=== PATIENT | female | born 1960 | race Caucasian/White ===

== ENCOUNTER 2021-08-08 07:30 | Outpatient (RCR) | payer OTHER, BC, SELFPAY ==
--- NOTE | 2021-05-30 15:48 | PT.OIE ---
Current Diagnoses Strain of muscle and tendon of unspecified wall of thorax, initial encounter (05/30/21) Visit Care Team Role Provider Type Carlito Ramos MD Attending Provider Non-Staff Primary Care Provider Referring Provider Specialty: Medical Address: [address] [place] [address], [phone] Fax: Email: Physical Therapy Initial Evaluation PT-OP-A Visit Information Start: 05/29/21 14:23 Freq: Status: Active Protocol: Document 05/30/21 12:17 MB (Rec: 05/30/21 12:36 MB [id number]) Out-Patient Physical Therapy Visit Information Visit Information Visit Type Initial Evaluation Visit Note [facility], no pre-auth, 45 visits per year Visit Start Time 12:17 Visit Stop Time 13:00 Total Visit Minutes 43 Visit Number 1 Evaluation Information Evaluation Date 05/30/21 PT-OP-B Current Condition Start: 05/29/21 14:23 Freq: Status: Active Protocol: Document 05/30/21 12:17 MB (Rec: 05/30/21 12:36 MB [id number]) Current Condition History of Current Condition Onset Date January 2021 Current Complaints Thoracic pain and tightness and finger numbness. 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 She thinks the grief took a toll on her body. In January, her dad almost slipped and she injured her back trying to help him. She had a trigger finger in right 5th finger and she did some OT exercises her daughter told her to do. She then had numbness in her right thumb and index finger. She tried massage therapy and was told she is a rock. She does a yoga routine twice a day and takes a muscle relaxor. Her right thumb and index finger have not stopped being numb since February. Left thumb numbness is starting at the tip of her thumb. She has pain in her thumb and finger joints. She states that the doctor told her she might have pinched something in her neck. Her doctor does not know about the left thumb numbness as it is new since visiting her doctor. This PT has not received any doctor notes through the EMR. Pt reports 4-5/10 pain across her chest and the front and and back of both her arms. After taking the muscle relaxor, she can sleep until about 0300 and then wakes up. She cannot sleep on her back. She sleeps on her left side and she lies her right arm across the pillow. She has one pillow under her head. She would rather not sleep with a pillow. PMH includes DM1 and has a pump and sensor, vision problems with some nystagmus, she occ uses magnifying glass and contrast, allergies to tape. Prior Treatments and Tests PT in the past for her right hip and leg Treatment Goals Patient/Caregiver Goals To decrease pain, sleep better and see if numbness in fingers gets better PT-OP-C Subjective Start: 05/29/21 14:23 Freq: Status: Active Protocol: Document 05/30/21 12:17 MB (Rec: 05/30/21 12:36 MB [id number]) OP-PT Subjective Patient Comments Patient Comments See history of current condition PT-OP-J Posture/Palpation/Skin Start: 05/29/21 14:23 Freq: Status: Active Protocol: Document 05/30/21 12:17 MB (Rec: 05/30/21 14:06 MB [id number]) Posture Evaluation Comments Posture Comments Standing posture: Rounded shoulders and increased soft tissue body mass, left shoulder 1 in front of left tragus, Dowager's hump, increased thoracic kyphosis and right sided convexity, increased lumbar lordosis, right iliac crest is higher than the left, left knee tends to bend and pt reports history of scoliosis. PT-OP-K Range of Motion Start: 05/29/21 14:23 Freq: Status: Active Protocol: Document 05/30/21 12:17 MB (Rec: 05/30/21 14:06 MB [id number]) Cervical Spine Range of Motion Cervical Spine Active Testing Position Standing Flexion 22 Extension 19 Rotation Left 42 Rotation Right 42 Lateral Flexion Left 16 Lateral Flexion Right 16 Comments Thoracic rotation in sitting to the right 5 deg and left 10 deg, very limited and with some discomfort Shoulder Goniometric Range of Motion Shoulder Left Active Testing Position Standing Flexion 140 Abduction 158 Right Active Testing Position Standing Flexion 140 Abduction 158 PT-OP-M Strength Start: 05/29/21 14:23 Freq: Status: Active Protocol: Document 05/30/21 12:17 MB (Rec: 05/30/21 14:09 MB [id number]) Shoulder Strength Shoulder Manual Muscle Testing Left Flexion 5 Normal Adduction 4 Good External Rotation 3+ Fair+ Internal Rotation 5 Normal Right Flexion 5 Normal Abduction (C5) 4 Good External Rotation 3+ Fair+ Internal Rotation 5 Normal Elbow/Forearm Strength Elbow and Forearm Manual Muscle Testing Left Flexion (C6) 5 Normal Extension (C7) 5 Normal Pronation 4 Good Supination 4 Good Right Flexion (C6) 5 Normal Extension (C7) 4 Good Pronation 4 Good Supination 4 Good Wrist Strength Wrist Manual Muscle Testing Left Flexion (C7) 4 Good Extension (C6) 4 Good Right Flexion (C7) 4 Good Extension (C6) 4 Good PT-OP-Q Treatments Start: 05/29/21 14:23 Freq: Status: Active Protocol: Document 05/30/21 12:17 MB (Rec: 05/30/21 14:03 MB [id number]) Self-Care/Home Management Treatment Education Patient Education Body Mechanics,Home Exercise Program,Joint Protection,Pain Management,Posture,Safety Other Education Proper sleeping position with cervical towel roll support at neck and pillow support between arms and knees when on side, benefits of wrist brace loose to decrease over flexing wrist at night and to keep arm down, benefits of pure direction gentle cervical ROM: flexion/extension, rotation right and left and SB right and left PT-OP-T Assessment and Plan Start: 05/29/21 14:23 Freq: Status: Active Protocol: Document 05/30/21 12:17 MB (Rec: 05/30/21 14:15 MB [id number]) Physical Therapy Assessment Rehab Potential Rehabilitation Potential Fair Evaluation Complexity Number of Personal Factors/Comorbidities 1-2 Number of Body Systems Impaired 3 Clinical Presentation at Evaluation Evolving Impairments Impairments Activity Tolerance,Balance, Functional Activities, Functional Mobility,Pain, Posture,ROM,Sensation,Soft Tissue Mobility,Strength Other Impairments Personal factors include pt states she is a workaholic and she does not have a lot of self-care time. Body systems affected include musculoskeletal, neuromuscular , metabolic, vision. Her clinical presentation is evolving. Goals 5 Red Lead Burner Goal (LTG) Pt will perform HEP with I including postural, breathing, relaxation, self-massage, range of motion and flexibility and strengthening exercises to improve mobility and pain by 07/30/21. LTG Duration 8 weeks 4 Snf Goal (LTG) Pt will present with improved active cervical extension and flexion to at least 30 deg and B rotation to at least 50 deg to improve pain and tasks like driving by 07/30/21. LTG Duration 8 weeks 3 Snf Goal (LTG) Pt will present with improved B thoracic rotation in sitting to at least 20 deg to improve pain and overall motion by . LTG Duration 8 weeks 2 Snf Goal (LTG) Pt will report a 50% improvement in finger numbness to improve fine motor tasks by 07/30/21. LTG Duration 8 weeks 1 Red Lead Burner Goal (LTG) Pt will report an overall 75% improvement in thoracic, neck and arm pain to improve sleep and quality of life by . LTG Duration 8 weeks Assessment Summary Assessment Pt is a 60 y/o female presenting with anterior and posterior thorax, neck and arm pain, right thumb and 1st digit numbness and newer left thumb tip numbness that she relates to an injury when assisting her father in January of this year. Pt has been through a lot this year with the loss of both parents and an in-law, all of whom she and her cared for. 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 She has had weight gain, has DM1 and chronic vision changes. She feels tight in her thorax and B shoulder flexion increases pain in her right neck and head. Her thorax, cervical and shoulder ROM is limited and in that order of severity. She also has trouble sleeping d/t pain. Her BP in RUE this date is in the 150s/ 80s at rest and she states this is high for her. She denies hamlet chest/heart pain and states that she can improve her pain with breathing. She presents with postural changes that further tighten her cervical, thoracic and shoulder fascial areas. She will benefit from PT for manual intervention including Counterstrain, breathing and other relaxation exercises, postural, flexibility and strengthening exercises. Her clinical presentation is challenging d/t overall postural presentation, stress/ grief and health. Physical Therapy Plan Frequency and Duration Frequency of Treatment 2x/Week Duration of Treatment 8 weeks Plan of Care Start Date 05/30/21 Plan of Care End Date 07/30/21 Therapeutic Interventions Therapeutic Interventions Balance Training,Canalithic Repositioning,Coordination Training,Home Exercise Program ,Joint Mobilizations,Manual Therapy,Neuromuscular Re- education,Patient/Caregiver Education,Self-Care/Home Management,Sensory Integration ,Soft Tissue Mobilization, Taping,Therapeutic Activities, Therapeutic Exercises Modalities Cold Pack/Ice Massage,Hot Packs Next Visit Focus/Plan Next Note Type Treatment Note Next Visit Plan Counterstrain vs thoracic rotation and breathing exercises Review pt's exercises she is already doing at home Self-massage with kids or racquet ball against the wall
--- NOTE | 2021-06-04 08:16 | PT.OTN ---
Current Diagnoses Strain of muscle and tendon of unspecified wall of thorax, initial encounter (06/04/21) Physical Therapy Treatment Note PT-OP-A Visit Information Start: 05/29/21 14:23 Freq: Status: Active Protocol: Document 06/04/21 07:30 MB (Rec: 06/04/21 08:13 MB [id number]) Out-Patient Physical Therapy Visit Information Visit Information Visit Type Treatment Note Visit Note [facility], no pre-auth, 45 visits per year Visit Start Time 07:30 Visit Stop Time 08:15 Total Visit Minutes 45 Visit Number 2 Evaluation Information Evaluation Date 05/30/21 PT-OP-B Current Condition Start: 05/29/21 14:23 Freq: Status: Active Protocol: Document 05/30/21 12:17 MB (Rec: 05/30/21 12:36 MB [id number]) Current Condition History of Current Condition Onset Date January 2021 Current Complaints Thoracic pain and tightness and finger numbness. 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 She thinks the grief took a toll on her body. In January, her dad almost slipped and she injured her back trying to help him. She had a trigger finger in right 5th finger and she did some OT exercises her daughter told her to do. She then had numbness in her right thumb and index finger. She tried massage therapy and was told she is a rock. She does a yoga routine twice a day and takes a muscle relaxor. Her right thumb and index finger have not stopped being numb since February. Left thumb numbness is starting at the tip of her thumb. She has pain in her thumb and finger joints. She states that the doctor told her she might have pinched something in her neck. Her doctor does not know about the left thumb numbness as it is new since visiting her doctor. This PT has not received any doctor notes through the EMR. Pt reports 4-5/10 pain across her chest and the front and and back of both her arms. After taking the muscle relaxor, she can sleep until about 0300 and then wakes up. She cannot sleep on her back. She sleeps on her left side and she lies her right arm across the pillow. She has one pillow under her head. She would rather not sleep with a pillow. PMH includes DM1 and has a pump and sensor, vision problems with some nystagmus, she occ uses magnifying glass and contrast, allergies to tape. Prior Treatments and Tests PT in the past for her right hip and leg Treatment Goals Patient/Caregiver Goals To decrease pain, sleep better and see if numbness in fingers gets better PT-OP-C Subjective Start: 05/29/21 14:23 Freq: Status: Active Protocol: Document 06/04/21 07:30 MB (Rec: 06/04/21 08:13 MB [id number]) OP-PT Subjective Patient Comments Patient Comments Pt states that she thinks she is a little bit worse. She felt left sided back pain when bending down to tie her shoes today. She couldn't picker tender helper pills with left fingers this morning because of the numbness. Numbness is still worse on right fingers. PT-OP-J Posture/Palpation/Skin Start: 05/29/21 14:23 Freq: Status: Active Protocol: Document 05/30/21 12:17 MB (Rec: 05/30/21 14:06 MB [id number]) Posture Evaluation Comments Posture Comments Standing posture: Rounded shoulders and increased soft tissue body mass, left shoulder 1 in front of left tragus, Dowager's hump, increased thoracic kyphosis and right sided convexity, increased lumbar lordosis, right iliac crest is higher than the left, left knee tends to bend and pt reports history of scoliosis. PT-OP-K Range of Motion Start: 05/29/21 14:23 Freq: Status: Active Protocol: Document 05/30/21 12:17 MB (Rec: 05/30/21 14:06 MB [id number]) Cervical Spine Range of Motion Cervical Spine Active Testing Position Standing Flexion 22 Extension 19 Rotation Left 42 Rotation Right 42 Lateral Flexion Left 16 Lateral Flexion Right 16 Comments Thoracic rotation in sitting to the right 5 deg and left 10 deg, very limited and with some discomfort Shoulder Goniometric Range of Motion Shoulder Left Active Testing Position Standing Flexion 140 Abduction 158 Right Active Testing Position Standing Flexion 140 Abduction 158 PT-OP-M Strength Start: 05/29/21 14:23 Freq: Status: Active Protocol: Document 05/30/21 12:17 MB (Rec: 05/30/21 14:09 MB [id number]) Shoulder Strength Shoulder Manual Muscle Testing Left Flexion 5 Normal Adduction 4 Good External Rotation 3+ Fair+ Internal Rotation 5 Normal Right Flexion 5 Normal Abduction (C5) 4 Good External Rotation 3+ Fair+ Internal Rotation 5 Normal Elbow/Forearm Strength Elbow and Forearm Manual Muscle Testing Left Flexion (C6) 5 Normal Extension (C7) 5 Normal Pronation 4 Good Supination 4 Good Right Flexion (C6) 5 Normal Extension (C7) 4 Good Pronation 4 Good Supination 4 Good Wrist Strength Wrist Manual Muscle Testing Left Flexion (C7) 4 Good Extension (C6) 4 Good Right Flexion (C7) 4 Good Extension (C6) 4 Good PT-OP-Q Treatments Start: 05/29/21 14:23 Freq: Status: Active Protocol: Document 06/04/21 07:30 MB (Rec: 06/04/21 08:13 MB [id number]) Manual Therapy Treatment Other Other Manual Treatments HR and O2 sats in third left finger before treatment with mouth paper taped: 67 BPM and sats 96%. Pt agrees to Counterstrain to assess and treat fascial tension and she presents with tension in the following fascial systems: dura, standard row LV, ALL, spinal medullary veins, visceral, sinuvertebral, DPR, sympathetics. PT treats stacks in dura, spinal vein extension and sympathetics and cranium is still tight with tension anterior somatics and costal cartilage. Suboccipital release and treated thoracic duct LV and lymphatic scan improves. Re-checked sympathetics and much better releases after suboccipital release and standard LV release. PT-OP-T Assessment and Plan Start: 05/29/21 14:23 Freq: Status: Active Protocol: Document 06/04/21 07:30 MB (Rec: 06/04/21 08:13 MB [id number]) Physical Therapy Assessment Rehab Potential Rehabilitation Potential Fair Evaluation Complexity Number of Personal Factors/Comorbidities 1-2 Number of Body Systems Impaired 3 Clinical Presentation at Evaluation Evolving Impairments Impairments Activity Tolerance,Balance, Functional Activities, Functional Mobility,Pain, Posture,ROM,Sensation,Soft Tissue Mobility,Strength Other Impairments Personal factors include pt states she is a workaholic and she does not have a lot of self-care time. Body systems affected include musculoskeletal, neuromuscular , metabolic, vision. Her clinical presentation is evolving. Goals 5 Line Up Worker Goal (LTG) Pt will perform HEP with I including postural, breathing, relaxation, self-massage, range of motion and flexibility and strengthening exercises to improve mobility and pain by 07/30/21. LTG Duration 8 weeks 4 Line Up Worker Goal (LTG) Pt will present with improved active cervical extension and flexion to at least 30 deg and B rotation to at least 50 deg to improve pain and tasks like driving by 07/30/21. LTG Duration 8 weeks 3 Line Up Worker Goal (LTG) Pt will present with improved B thoracic rotation in sitting to at least 20 deg to improve pain and overall motion by . LTG Duration 8 weeks 2 [facility] Goal (LTG) Pt will report a 50% improvement in finger numbness to improve fine motor tasks by 07/30/21. LTG Duration 8 weeks 1 [facility] Goal (LTG) Pt will report an overall 75% improvement in thoracic, neck and arm pain to improve sleep and quality of life by . LTG Duration 8 weeks Assessment Summary Assessment Pt's entire cranium and neck are very tight and congested and finally improve after suboccipital release and treating one LV point and then revisiting sympathetics and her breathing softens (nasal and with mouth paper taped during treatment). HR 67 BPM and sats 96-97% in hook lying on RA. Pt's presentation will benefit from breathing training soon to help parasympathetic nervous system engage and help tone down sympathetics. HR decreases to 63 with nasal breathing and Counterstrain. Physical Therapy Plan Frequency and Duration Frequency of Treatment 2x/Week Duration of Treatment 8 weeks Plan of Care Start Date 05/30/21 Plan of Care End Date 07/30/21 Therapeutic Interventions Therapeutic Interventions Balance Training,Canalithic Repositioning,Coordination Training,Home Exercise Program ,Joint Mobilizations,Manual Therapy,Neuromuscular Re- education,Patient/Caregiver Education,Self-Care/Home Management,Sensory Integration ,Soft Tissue Mobilization, Taping,Therapeutic Activities, Therapeutic Exercises Modalities Cold Pack/Ice Massage,Hot Packs Next Visit Focus/Plan Next Note Type Treatment Note Next Visit Plan Con't Counterstrain if it is helpful, add thoracic rotation and breathing exercises Review pt's exercises she is already doing at home Self-massage with kids or racquet ball against the wall, Buteyko breathing soon
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
--- NOTE | 2021-06-11 08:14 | PT.OTN ---
Current Diagnoses Strain of muscle and tendon of unspecified wall of thorax, initial encounter (06/11/21) Physical Therapy Treatment Note PT-OP-A Visit Information Start: 05/29/21 14:23 Freq: Status: Active Protocol: Document 06/11/21 07:30 MB (Rec: 06/11/21 08:11 MB [id number]) Out-Patient Physical Therapy Visit Information Visit Information Visit Type Treatment Note Visit Note Premera, no pre-auth, 45 visits per year Visit Start Time 07:30 Visit Stop Time 08:11 Total Visit Minutes 41 Visit Number 4 Evaluation Information Evaluation Date 05/30/21 Precautions Precautions Pt with tingling in hands (had this on initial eval and doctor is aware, contine to monitor) PT-OP-B Current Condition Start: 05/29/21 14:23 Freq: Status: Active Protocol: Document 05/30/21 12:17 MB (Rec: 05/30/21 12:36 MB [id number]) Current Condition History of Current Condition Onset Date January 2021 Current Complaints Thoracic pain and tightness and finger numbness. 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 She thinks the grief took a toll on her body. In January, her dad almost slipped and she injured her back trying to help him. She had a trigger finger in right 5th finger and she did some OT exercises her daughter told her to do. She then had numbness in her right thumb and index finger. She tried massage therapy and was told she is a rock. She does a yoga routine twice a day and takes a muscle relaxor. Her right thumb and index finger have not stopped being numb since February. Left thumb numbness is starting at the tip of her thumb. She has pain in her thumb and finger joints. She states that the doctor told her she might have pinched something in her neck. Her doctor does not know about the left thumb numbness as it is new since visiting her doctor. This PT has not received any doctor notes through the EMR. Pt reports 4-5/10 pain across her chest and the front and and back of both her arms. After taking the muscle relaxor, she can sleep until about 0300 and then wakes up. She cannot sleep on her back. She sleeps on her left side and she lies her right arm across the pillow. She has one pillow under her head. She would rather not sleep with a pillow. PMH includes DM1 and has a pump and sensor, vision problems with some nystagmus, she occ uses magnifying glass and contrast, allergies to tape. Prior Treatments and Tests PT in the past for her right hip and leg Treatment Goals Patient/Caregiver Goals To decrease pain, sleep better and see if numbness in fingers gets better PT-OP-C Subjective Start: 05/29/21 14:23 Freq: Status: Active Protocol: Document 06/11/21 07:30 MB (Rec: 06/11/21 08:11 MB [id number]) OP-PT Subjective Patient Comments Patient Comments Pt feels looser and is doing her breathing. She was up at the emergency vet with her cat overnight. It has been upsetting and she is still at the vet. PT-OP-J Posture/Palpation/Skin Start: 05/29/21 14:23 Freq: Status: Active Protocol: Document 05/30/21 12:17 MB (Rec: 05/30/21 14:06 MB [id number]) Posture Evaluation Comments Posture Comments Standing posture: Rounded shoulders and increased soft tissue body mass, left shoulder 1 in front of left tragus, Dowager's hump, increased thoracic kyphosis and right sided convexity, increased lumbar lordosis, right iliac crest is higher than the left, left knee tends to bend and pt reports history of scoliosis. PT-OP-K Range of Motion Start: 05/29/21 14:23 Freq: Status: Active Protocol: Document 05/30/21 12:17 MB (Rec: 05/30/21 14:06 MB [id number]) Cervical Spine Range of Motion Cervical Spine Active Testing Position Standing Flexion 22 Extension 19 Rotation Left 42 Rotation Right 42 Lateral Flexion Left 16 Lateral Flexion Right 16 Comments Thoracic rotation in sitting to the right 5 deg and left 10 deg, very limited and with some discomfort Shoulder Goniometric Range of Motion Shoulder Left Active Testing Position Standing Flexion 140 Abduction 158 Right Active Testing Position Standing Flexion 140 Abduction 158 PT-OP-M Strength Start: 05/29/21 14:23 Freq: Status: Active Protocol: Document 05/30/21 12:17 MB (Rec: 05/30/21 14:09 MB [id number]) Shoulder Strength Shoulder Manual Muscle Testing Left Flexion 5 Normal Adduction 4 Good External Rotation 3+ Fair+ Internal Rotation 5 Normal Right Flexion 5 Normal Abduction (C5) 4 Good External Rotation 3+ Fair+ Internal Rotation 5 Normal Elbow/Forearm Strength Elbow and Forearm Manual Muscle Testing Left Flexion (C6) 5 Normal Extension (C7) 5 Normal Pronation 4 Good Supination 4 Good Right Flexion (C6) 5 Normal Extension (C7) 4 Good Pronation 4 Good Supination 4 Good Wrist Strength Wrist Manual Muscle Testing Left Flexion (C7) 4 Good Extension (C6) 4 Good Right Flexion (C7) 4 Good Extension (C6) 4 Good PT-OP-Q Treatments Start: 05/29/21 14:23 Freq: Status: Active Protocol: Document 06/11/21 07:30 MB (Rec: 06/11/21 08:11 MB [id number]) Therapeutic Exercises Supine Exercises B shoulder flexion and thoracic extension Comments Knees bent Bridge Comments Pt performs well Prone Exercises Child's Pose Comments Pt reports pain with walking hands to left in left shoulder and stopped Cat and cow Comments Pt performs well and to con't at home Cobra Comments Limited movement, PT ed pt not to do at home Sitting Exercises Cervical rotation with nods Comments 2 reps with nods Thoracic rotation Side bilateral Comments End-range breathing with moving ribs Standing Exercises Scapular retraction Equipment Used Level 2 band Comments Elbows bent, her shoulders go to earlobes. Elbows straight, better, 5 reps PT-OP-T Assessment and Plan Start: 05/29/21 14:23 Freq: Status: Active Protocol: Document 06/11/21 07:30 MB (Rec: 06/11/21 08:11 MB [id number]) Physical Therapy Assessment Rehab Potential Rehabilitation Potential Fair Evaluation Complexity Number of Personal Factors/Comorbidities 1-2 Number of Body Systems Impaired 3 Clinical Presentation at Evaluation Evolving Impairments Impairments Activity Tolerance,Balance, Functional Activities, Functional Mobility,Pain, Posture,ROM,Sensation,Soft Tissue Mobility,Strength Other Impairments Personal factors include pt states she is a workaholic and she does not have a lot of self-care time. Body systems affected include musculoskeletal, neuromuscular , metabolic, vision. Her clinical presentation is evolving. Goals 5 Snf Goal (LTG) Pt will perform HEP with I including postural, breathing, relaxation, self-massage, range of motion and flexibility and strengthening exercises to improve mobility and pain by 11/23/21. LTG Duration 8 weeks 4 Snf Goal (LTG) Pt will present with improved active cervical extension and flexion to at least 30 deg and B rotation to at least 50 deg to improve pain and tasks like driving by 07/30/21. LTG Duration 8 weeks 3 Snf Goal (LTG) Pt will present with improved B thoracic rotation in sitting to at least 20 deg to improve pain and overall motion by . LTG Duration 8 weeks 2 Snf Goal (LTG) Pt will report a 50% improvement in finger numbness to improve fine motor tasks by 07/30/21. LTG Duration 8 weeks 1 Snf Goal (LTG) Pt will report an overall 75% improvement in thoracic, neck and arm pain to improve sleep and quality of life by . LTG Duration 8 weeks Assessment Summary Assessment PT ed pt not to perform Cobra, superman, prone abduction arm at this time. Pt has left shoulder pain with walking hands to the left with child's pose and so stopped. Pt to con't cat cow and scapular retraction with arms straight and then added ball for thoracic spine, thoracic rotation and cervical range today. Pt's paresthesias increase with thoracic rotation and with cervical rotation exercies (right hand for cervical spine) and so con't to monitor. Physical Therapy Plan Frequency and Duration Frequency of Treatment 2x/Week Duration of Treatment 8 weeks Plan of Care Start Date 05/30/21 Plan of Care End Date 07/30/21 Therapeutic Interventions Therapeutic Interventions Balance Training,Canalithic Repositioning,Coordination Training,Home Exercise Program ,Joint Mobilizations,Manual Therapy,Neuromuscular Re- education,Patient/Caregiver Education,Self-Care/Home Management,Sensory Integration ,Soft Tissue Mobilization, Taping,Therapeutic Activities, Therapeutic Exercises Modalities Cold Pack/Ice Massage,Hot Packs Other Referrals/Consults Referrals/Consults Recommended EMG for right greater than left hand paresthesias and then OT hand specialist Next Visit Focus/Plan Next Note Type Treatment Note Next Visit Plan Con't Counterstrain, consider Buteyko progression
--- NOTE | 2021-06-13 08:13 | PT.OTN ---
Current Diagnoses Strain of muscle and tendon of unspecified wall of thorax, initial encounter (06/13/21) Physical Therapy Treatment Note PT-OP-A Visit Information Start: 05/29/21 14:23 Freq: Status: Active Protocol: Document 06/13/21 07:31 MB (Rec: 06/13/21 08:12 MB [id number]) Out-Patient Physical Therapy Visit Information Visit Information Visit Type Treatment Note Visit Note Premera, no pre-auth, 45 visits per year Visit Start Time 07:31 Visit Stop Time 08:12 Total Visit Minutes 41 Visit Number 5 Evaluation Information Evaluation Date 05/30/21 Precautions Precautions Pt with tingling in hands (had this on initial eval and doctor is aware, contine to monitor) PT-OP-B Current Condition Start: 05/29/21 14:23 Freq: Status: Active Protocol: Document 05/30/21 12:17 MB (Rec: 05/30/21 12:36 MB [id number]) Current Condition History of Current Condition Onset Date January 2021 Current Complaints Thoracic pain and tightness and finger numbness. 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 She thinks the grief took a toll on her body. In January, her dad almost slipped and she injured her back trying to help him. She had a trigger finger in right 5th finger and she did some OT exercises her daughter told her to do. She then had numbness in her right thumb and index finger. She tried massage therapy and was told she is a rock. She does a yoga routine twice a day and takes a muscle relaxor. Her right thumb and index finger have not stopped being numb since February. Left thumb numbness is starting at the tip of her thumb. She has pain in her thumb and finger joints. She states that the doctor told her she might have pinched something in her neck. Her doctor does not know about the left thumb numbness as it is new since visiting her doctor. This PT has not received any doctor notes through the EMR. Pt reports 4-5/10 pain across her chest and the front and and back of both her arms. After taking the muscle relaxor, she can sleep until about 0300 and then wakes up. She cannot sleep on her back. She sleeps on her left side and she lies her right arm across the pillow. She has one pillow under her head. She would rather not sleep with a pillow. PMH includes DM1 and has a pump and sensor, vision problems with some nystagmus, she occ uses magnifying glass and contrast, allergies to tape. Prior Treatments and Tests PT in the past for her right hip and leg Treatment Goals Patient/Caregiver Goals To decrease pain, sleep better and see if numbness in fingers gets better PT-OP-C Subjective Start: 05/29/21 14:23 Freq: Status: Active Protocol: Document 06/13/21 07:31 MB (Rec: 06/13/21 08:12 MB [id number]) OP-PT Subjective Patient Comments Patient Comments Pt was a little stiff after that last treatment from working through the exercises she was doing on her own at home. The exercises PT and pt kept are not problematic. Her cat is okay. PT-OP-J Posture/Palpation/Skin Start: 05/29/21 14:23 Freq: Status: Active Protocol: Document 05/30/21 12:17 MB (Rec: 05/30/21 14:06 MB [id number]) Posture Evaluation Comments Posture Comments Standing posture: Rounded shoulders and increased soft tissue body mass, left shoulder 1 in front of left tragus, Dowager's hump, increased thoracic kyphosis and right sided convexity, increased lumbar lordosis, right iliac crest is higher than the left, left knee tends to bend and pt reports history of scoliosis. PT-OP-K Range of Motion Start: 05/29/21 14:23 Freq: Status: Active Protocol: Document 05/30/21 12:17 MB (Rec: 05/30/21 14:06 MB [id number]) Cervical Spine Range of Motion Cervical Spine Active Testing Position Standing Flexion 22 Extension 19 Rotation Left 42 Rotation Right 42 Lateral Flexion Left 16 Lateral Flexion Right 16 Comments Thoracic rotation in sitting to the right 5 deg and left 10 deg, very limited and with some discomfort Shoulder Goniometric Range of Motion Shoulder Left Active Testing Position Standing Flexion 140 Abduction 158 Right Active Testing Position Standing Flexion 140 Abduction 158 PT-OP-M Strength Start: 05/29/21 14:23 Freq: Status: Active Protocol: Document 05/30/21 12:17 MB (Rec: 05/30/21 14:09 MB [id number]) Shoulder Strength Shoulder Manual Muscle Testing Left Flexion 5 Normal Adduction 4 Good External Rotation 3+ Fair+ Internal Rotation 5 Normal Right Flexion 5 Normal Abduction (C5) 4 Good External Rotation 3+ Fair+ Internal Rotation 5 Normal Elbow/Forearm Strength Elbow and Forearm Manual Muscle Testing Left Flexion (C6) 5 Normal Extension (C7) 5 Normal Pronation 4 Good Supination 4 Good Right Flexion (C6) 5 Normal Extension (C7) 4 Good Pronation 4 Good Supination 4 Good Wrist Strength Wrist Manual Muscle Testing Left Flexion (C7) 4 Good Extension (C6) 4 Good Right Flexion (C7) 4 Good Extension (C6) 4 Good PT-OP-Q Treatments Start: 05/29/21 14:23 Freq: Status: Active Protocol: Document 06/13/21 07:31 MB (Rec: 06/13/21 08:12 MB [id number]) Manual Therapy Treatment Other Other Manual Treatments Pt agrees to Counterstrain to assess and treat fascial tension and pt presents with tension in the following fascial systems: dura, mesentery, ALL, LF, viscera. PT treats stacks in mesentery and cranial scan improves and her ribs move better. PT then treats left TENT PT-OP-T Assessment and Plan Start: 05/29/21 14:23 Freq: Status: Active Protocol: Document 06/13/21 07:31 MB (Rec: 06/13/21 08:12 MB [id number]) Physical Therapy Assessment Rehab Potential Rehabilitation Potential Fair Evaluation Complexity Number of Personal Factors/Comorbidities 1-2 Number of Body Systems Impaired 3 Clinical Presentation at Evaluation Evolving Impairments Impairments Activity Tolerance,Balance, Functional Activities, Functional Mobility,Pain, Posture,ROM,Sensation,Soft Tissue Mobility,Strength Other Impairments Personal factors include pt states she is a workaholic and she does not have a lot of self-care time. Body systems affected include musculoskeletal, neuromuscular , metabolic, vision. Her clinical presentation is evolving. Goals 5 Senior Care Goal (LTG) Pt will perform HEP with I including postural, breathing, relaxation, self-massage, range of motion and flexibility and strengthening exercises to improve mobility and pain by 07/30/21. LTG Duration 8 weeks 4 Senior Care Goal (LTG) Pt will present with improved active cervical extension and flexion to at least 30 deg and B rotation to at least 50 deg to improve pain and tasks like driving by 07/30/21. LTG Duration 8 weeks 3 Senior Care Goal (LTG) Pt will present with improved B thoracic rotation in sitting to at least 20 deg to improve pain and overall motion by . LTG Duration 8 weeks 2 Hydrotreater Operator Goal (LTG) Pt will report a 50% improvement in finger numbness to improve fine motor tasks by 07/30/21. LTG Duration 8 weeks 1 Hydrotreater Operator Goal (LTG) Pt will report an overall 75% improvement in thoracic, neck and arm pain to improve sleep and quality of life by . LTG Duration 8 weeks Assessment Summary Assessment Countrerstrain again today and PT treated out visceral mesentery fascial. Will monitor response. Physical Therapy Plan Frequency and Duration Frequency of Treatment 2x/Week Duration of Treatment 8 weeks Plan of Care Start Date 05/30/21 Plan of Care End Date 07/30/21 Therapeutic Interventions Therapeutic Interventions Balance Training,Canalithic Repositioning,Coordination Training,Home Exercise Program ,Joint Mobilizations,Manual Therapy,Neuromuscular Re- education,Patient/Caregiver Education,Self-Care/Home Management,Sensory Integration ,Soft Tissue Mobilization, Taping,Therapeutic Activities, Therapeutic Exercises Modalities Cold Pack/Ice Massage,Hot Packs Other Referrals/Consults Referrals/Consults Recommended EMG for right greater than left hand paresthesias and then OT hand specialist Next Visit Focus/Plan Next Note Type Treatment Note Next Visit Plan Con't Counterstrain, consider Buteyko progression, consider therapy ball for exercises
--- NOTE | 2021-06-21 15:21 | PT.OTN ---
Current Diagnoses Strain of muscle and tendon of unspecified wall of thorax, initial encounter (06/21/21) Physical Therapy Treatment Note PT-OP-A Visit Information Start: 05/29/21 14:23 Freq: Status: Active Protocol: Document 06/21/21 14:31 MB (Rec: 06/21/21 15:20 MB [id number]) Out-Patient Physical Therapy Visit Information Visit Information Visit Type Treatment Note Visit Note Premera, no pre-auth, 45 visits per year Visit Start Time 14:31 Visit Stop Time 15:15 Total Visit Minutes 44 Visit Number 6 Evaluation Information Evaluation Date 05/30/21 Precautions Precautions Pt with tingling in hands (had this on initial eval and doctor is aware, contine to monitor) PT-OP-B Current Condition Start: 05/29/21 14:23 Freq: Status: Active Protocol: Document 05/30/21 12:17 MB (Rec: 05/30/21 12:36 MB [id number]) Current Condition History of Current Condition Onset Date January 2021 Current Complaints Thoracic pain and tightness and finger numbness. 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 She thinks the grief took a toll on her body. In January, her dad almost slipped and she injured her back trying to help him. She had a trigger finger in right 5th finger and she did some OT exercises her daughter told her to do. She then had numbness in her right thumb and index finger. She tried massage therapy and was told she is a rock. She does a yoga routine twice a day and takes a muscle relaxor. Her right thumb and index finger have not stopped being numb since February. Left thumb numbness is starting at the tip of her thumb. She has pain in her thumb and finger joints. She states that the doctor told her she might have pinched something in her neck. Her doctor does not know about the left thumb numbness as it is new since visiting her doctor. This PT has not received any doctor notes through the EMR. Pt reports 4-5/10 pain across her chest and the front and and back of both her arms. After taking the muscle relaxor, she can sleep until about 0300 and then wakes up. She cannot sleep on her back. She sleeps on her left side and she lies her right arm across the pillow. She has one pillow under her head. She would rather not sleep with a pillow. PMH includes DM1 and has a pump and sensor, vision problems with some nystagmus, she occ uses magnifying glass and contrast, allergies to tape. Prior Treatments and Tests PT in the past for her right hip and leg Treatment Goals Patient/Caregiver Goals To decrease pain, sleep better and see if numbness in fingers gets better PT-OP-C Subjective Start: 05/29/21 14:23 Freq: Status: Active Protocol: Document 06/21/21 14:31 MB (Rec: 06/21/21 15:20 MB [id number]) OP-PT Subjective Patient Comments Patient Comments Pt states that she had a headache the rest of the day after last treatment ( Counterstrain). She is feeling better overall and looser. She is doing the breathing exercises. Pt asks about the Med[employer] radha and link for breathing exercise with Marques Guerrero PT-OP-J Posture/Palpation/Skin Start: 05/29/21 14:23 Freq: Status: Active Protocol: Document 05/30/21 12:17 MB (Rec: 05/30/21 14:06 MB [id number]) Posture Evaluation Comments Posture Comments Standing posture: Rounded shoulders and increased soft tissue body mass, left shoulder 1 in front of left tragus, Dowager's hump, increased thoracic kyphosis and right sided convexity, increased lumbar lordosis, right iliac crest is higher than the left, left knee tends to bend and pt reports history of scoliosis. PT-OP-K Range of Motion Start: 05/29/21 14:23 Freq: Status: Active Protocol: Document 05/30/21 12:17 MB (Rec: 05/30/21 14:06 MB [id number]) Cervical Spine Range of Motion Cervical Spine Active Testing Position Standing Flexion 22 Extension 19 Rotation Left 42 Rotation Right 42 Lateral Flexion Left 16 Lateral Flexion Right 16 Comments Thoracic rotation in sitting to the right 5 deg and left 10 deg, very limited and with some discomfort Shoulder Goniometric Range of Motion Shoulder Left Active Testing Position Standing Flexion 140 Abduction 158 Right Active Testing Position Standing Flexion 140 Abduction 158 PT-OP-M Strength Start: 05/29/21 14:23 Freq: Status: Active Protocol: Document 05/30/21 12:17 MB (Rec: 05/30/21 14:09 MB [id number]) Shoulder Strength Shoulder Manual Muscle Testing Left Flexion 5 Normal Adduction 4 Good External Rotation 3+ Fair+ Internal Rotation 5 Normal Right Flexion 5 Normal Abduction (C5) 4 Good External Rotation 3+ Fair+ Internal Rotation 5 Normal Elbow/Forearm Strength Elbow and Forearm Manual Muscle Testing Left Flexion (C6) 5 Normal Extension (C7) 5 Normal Pronation 4 Good Supination 4 Good Right Flexion (C6) 5 Normal Extension (C7) 4 Good Pronation 4 Good Supination 4 Good Wrist Strength Wrist Manual Muscle Testing Left Flexion (C7) 4 Good Extension (C6) 4 Good Right Flexion (C7) 4 Good Extension (C6) 4 Good PT-OP-Q Treatments Start: 05/29/21 14:23 Freq: Status: Active Protocol: Document 06/21/21 14:31 MB (Rec: 06/21/21 15:20 MB [id number]) Therapeutic Exercises Supine Exercises Buteyko breathing Supine Exercise Name Progressed to Buteyko breathing radha Comments See assessment comments PT-OP-T Assessment and Plan Start: 05/29/21 14:23 Freq: Status: Active Protocol: Document 06/21/21 14:31 MB (Rec: 06/21/21 15:20 MB [id number]) Physical Therapy Assessment Rehab Potential Rehabilitation Potential Fair Evaluation Complexity Number of Personal Factors/Comorbidities 1-2 Number of Body Systems Impaired 3 Clinical Presentation at Evaluation Evolving Impairments Impairments Activity Tolerance,Balance, Functional Activities, Functional Mobility,Pain, Posture,ROM,Sensation,Soft Tissue Mobility,Strength Other Impairments Personal factors include pt states she is a workaholic and she does not have a lot of self-care time. Body systems affected include musculoskeletal, neuromuscular , metabolic, vision. Her clinical presentation is evolving. Goals 5 Assisted Goal (LTG) Pt will perform HEP with I including postural, breathing, relaxation, self-massage, range of motion and flexibility and strengthening exercises to improve mobility and pain by 07/30/21. LTG Duration 8 weeks 4 Assisted Goal (LTG) Pt will present with improved active cervical extension and flexion to at least 30 deg and B rotation to at least 50 deg to improve pain and tasks like driving by 07/30/21. LTG Duration 8 weeks 3 Assisted Goal (LTG) Pt will present with improved B thoracic rotation in sitting to at least 20 deg to improve pain and overall motion by . LTG Duration 8 weeks 2 Cnc Service Technician Goal (LTG) Pt will report a 50% improvement in finger numbness to improve fine motor tasks by 07/30/21. LTG Duration 8 weeks 1 Assisted Goal (LTG) Pt will report an overall 75% improvement in thoracic, neck and arm pain to improve sleep and quality of life by . LTG Duration 8 weeks Assessment Summary Assessment [employer] breathing radha today: pt supine, mouth taped, head and LEs supported by pillows, relaxing several muscle groups , working on decreasing breathing, stomach and chest relaxed and free from tension. Focus on creating need for air gently. Pt to con't radha on her own at home before bed. Physical Therapy Plan Frequency and Duration Frequency of Treatment 2x/Week Duration of Treatment 8 weeks Plan of Care Start Date 05/30/21 Plan of Care End Date 07/30/21 Therapeutic Interventions Therapeutic Interventions Balance Training,Canalithic Repositioning,Coordination Training,Home Exercise Program ,Joint Mobilizations,Manual Therapy,Neuromuscular Re- education,Patient/Caregiver Education,Self-Care/Home Management,Sensory Integration ,Soft Tissue Mobilization, Taping,Therapeutic Activities, Therapeutic Exercises Modalities Cold Pack/Ice Massage,Hot Packs Other Referrals/Consults Referrals/Consults Recommended EMG for right greater than left hand paresthesias and then OT hand specialist Next Visit Focus/Plan Next Note Type Treatment Note Next Visit Plan Con't Counterstrain, consider therapy ball for exercises
--- NOTE | 2021-06-24 08:12 | PT.OTN ---
Current Diagnoses Strain of muscle and tendon of unspecified wall of thorax, initial encounter (06/24/21) Physical Therapy Treatment Note PT-OP-A Visit Information Start: 05/29/21 14:23 Freq: Status: Active Protocol: Document 06/24/21 07:32 MB (Rec: 06/24/21 08:09 MB [id number]) Out-Patient Physical Therapy Visit Information Visit Information Visit Type Treatment Note Visit Note Premera, no pre-auth, 45 visits per year Visit Start Time 07:32 Visit Stop Time 08:12 Total Visit Minutes 40 Visit Number 7 Evaluation Information Evaluation Date 05/30/21 Precautions Precautions Pt with tingling in hands (had this on initial eval and doctor is aware, contine to monitor) PT-OP-B Current Condition Start: 05/29/21 14:23 Freq: Status: Active Protocol: Document 05/30/21 12:17 MB (Rec: 05/30/21 12:36 MB [id number]) Current Condition History of Current Condition Onset Date January 2021 Current Complaints Thoracic pain and tightness and finger numbness. 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 She thinks the grief took a toll on her body. In January, her dad almost slipped and she injured her back trying to help him. She had a trigger finger in right 5th finger and she did some OT exercises her daughter told her to do. She then had numbness in her right thumb and index finger. She tried massage therapy and was told she is a rock. She does a yoga routine twice a day and takes a muscle relaxor. Her right thumb and index finger have not stopped being numb since February. Left thumb numbness is starting at the tip of her thumb. She has pain in her thumb and finger joints. She states that the doctor told her she might have pinched something in her neck. Her doctor does not know about the left thumb numbness as it is new since visiting her doctor. This PT has not received any doctor notes through the EMR. Pt reports 4-5/10 pain across her chest and the front and and back of both her arms. After taking the muscle relaxor, she can sleep until about 0300 and then wakes up. She cannot sleep on her back. She sleeps on her left side and she lies her right arm across the pillow. She has one pillow under her head. She would rather not sleep with a pillow. PMH includes DM1 and has a pump and sensor, vision problems with some nystagmus, she occ uses magnifying glass and contrast, allergies to tape. Prior Treatments and Tests PT in the past for her right hip and leg Treatment Goals Patient/Caregiver Goals To decrease pain, sleep better and see if numbness in fingers gets better PT-OP-C Subjective Start: 05/29/21 14:23 Freq: Status: Active Protocol: Document 06/24/21 07:32 MB (Rec: 06/24/21 08:09 MB [id number]) OP-PT Subjective Patient Comments Patient Comments Pt states that her left fingers are not numb at all anymore. Her right fingers con 't to be so. PT-OP-J Posture/Palpation/Skin Start: 05/29/21 14:23 Freq: Status: Active Protocol: Document 05/30/21 12:17 MB (Rec: 05/30/21 14:06 MB [id number]) Posture Evaluation Comments Posture Comments Standing posture: Rounded shoulders and increased soft tissue body mass, left shoulder 1 in front of left tragus, Dowager's hump, increased thoracic kyphosis and right sided convexity, increased lumbar lordosis, right iliac crest is higher than the left, left knee tends to bend and pt reports history of scoliosis. PT-OP-K Range of Motion Start: 05/29/21 14:23 Freq: Status: Active Protocol: Document 05/30/21 12:17 MB (Rec: 05/30/21 14:06 MB [id number]) Cervical Spine Range of Motion Cervical Spine Active Testing Position Standing Flexion 22 Extension 19 Rotation Left 42 Rotation Right 42 Lateral Flexion Left 16 Lateral Flexion Right 16 Comments Thoracic rotation in sitting to the right 5 deg and left 10 deg, very limited and with some discomfort Shoulder Goniometric Range of Motion Shoulder Left Active Testing Position Standing Flexion 140 Abduction 158 Right Active Testing Position Standing Flexion 140 Abduction 158 PT-OP-M Strength Start: 05/29/21 14:23 Freq: Status: Active Protocol: Document 05/30/21 12:17 MB (Rec: 05/30/21 14:09 MB [id number]) Shoulder Strength Shoulder Manual Muscle Testing Left Flexion 5 Normal Adduction 4 Good External Rotation 3+ Fair+ Internal Rotation 5 Normal Right Flexion 5 Normal Abduction (C5) 4 Good External Rotation 3+ Fair+ Internal Rotation 5 Normal Elbow/Forearm Strength Elbow and Forearm Manual Muscle Testing Left Flexion (C6) 5 Normal Extension (C7) 5 Normal Pronation 4 Good Supination 4 Good Right Flexion (C6) 5 Normal Extension (C7) 4 Good Pronation 4 Good Supination 4 Good Wrist Strength Wrist Manual Muscle Testing Left Flexion (C7) 4 Good Extension (C6) 4 Good Right Flexion (C7) 4 Good Extension (C6) 4 Good PT-OP-Q Treatments Start: 05/29/21 14:23 Freq: Status: Active Protocol: Document 06/24/21 07:32 MB (Rec: 06/24/21 08:09 MB [id number]) Therapeutic Exercises Supine Exercises Pool noodle exercises Supine Exercise Name Tip pelvis, tummy tight Side bilateral Equipment Used Purple pool noodle Comments Scapular retraction, pect opening Pect stretch Side bilateral Equipment Used Towel along spine Comments Deep breathing, thoracic extension, scap retraction, pect stretch Sitting Exercises Pect stretch over ball Equipment Used 55 cm ball Comments Bar to the right and assist to walk down and walk back up 55 cm ball Sitting Exercise Name Sitting on the ball, large circles right and left, abd drawing in Side bilateral Comments Abd drawing in tilt forward and back and small circles right and left PT-OP-T Assessment and Plan Start: 05/29/21 14:23 Freq: Status: Active Protocol: Document 06/24/21 07:32 MB (Rec: 06/24/21 08:09 MB [id number]) Physical Therapy Assessment Rehab Potential Rehabilitation Potential Fair Evaluation Complexity Number of Personal Factors/Comorbidities 1-2 Number of Body Systems Impaired 3 Clinical Presentation at Evaluation Evolving Impairments Impairments Activity Tolerance,Balance, Functional Activities, Functional Mobility,Pain, Posture,ROM,Sensation,Soft Tissue Mobility,Strength Other Impairments Personal factors include pt states she is a workaholic and she does not have a lot of self-care time. Body systems affected include musculoskeletal, neuromuscular , metabolic, vision. Her clinical presentation is evolving. Goals 5 Tax Expert Goal (LTG) Pt will perform HEP with I including postural, breathing, relaxation, self-massage, range of motion and flexibility and strengthening exercises to improve mobility and pain by 07/30/21. LTG Duration 8 weeks 4 Tax Expert Goal (LTG) Pt will present with improved active cervical extension and flexion to at least 30 deg and B rotation to at least 50 deg to improve pain and tasks like driving by 07/30/21. LTG Duration 8 weeks 3 Tax Expert Goal (LTG) Pt will present with improved B thoracic rotation in sitting to at least 20 deg to improve pain and overall motion by . LTG Duration 8 weeks 2 Tax Expert Goal (LTG) Pt will report a 50% improvement in finger numbness to improve fine motor tasks by 07/30/21. LTG Duration 8 weeks 1 Tax Expert Goal (LTG) Pt will report an overall 75% improvement in thoracic, neck and arm pain to improve sleep and quality of life by . LTG Duration 8 weeks Assessment Summary Assessment Progressed flexibility today with therapy ball, towel roll, pool noodle and pt tolerates well. Ed pt in the benefits of getting a pool noodle and therapy ball and working on breathing with it. Ed pt on benefits of going for a walk at lunch. Physical Therapy Plan Frequency and Duration Frequency of Treatment 2x/Week Duration of Treatment 8 weeks Plan of Care Start Date 05/30/21 Plan of Care End Date 07/30/21 Therapeutic Interventions Therapeutic Interventions Balance Training,Canalithic Repositioning,Coordination Training,Home Exercise Program ,Joint Mobilizations,Manual Therapy,Neuromuscular Re- education,Patient/Caregiver Education,Self-Care/Home Management,Sensory Integration ,Soft Tissue Mobilization, Taping,Therapeutic Activities, Therapeutic Exercises Modalities Cold Pack/Ice Massage,Hot Packs Other Referrals/Consults Referrals/Consults Recommended EMG for right greater than left hand paresthesias and then OT hand specialist Next Visit Focus/Plan Next Note Type Treatment Note Next Visit Plan Consider progressing Buteyko breathing, therapy ball exercises, consider strengthening over pool noodle
--- NOTE | 2021-06-26 08:14 | PT.OTN ---
Current Diagnoses Strain of muscle and tendon of unspecified wall of thorax, initial encounter (06/26/21) Physical Therapy Treatment Note PT-OP-A Visit Information Start: 05/29/21 14:23 Freq: Status: Active Protocol: Document 06/26/21 07:30 MB (Rec: 06/26/21 08:13 MB [id number]) Out-Patient Physical Therapy Visit Information Visit Information Visit Type Treatment Note Visit Note Premera, no pre-auth, 45 visits per year Visit Start Time 07:30 Visit Stop Time 08:12 Total Visit Minutes 42 Visit Number 8 Evaluation Information Evaluation Date 05/30/21 Precautions Precautions Pt with tingling in hands (had this on initial eval and doctor is aware, contine to monitor) PT-OP-B Current Condition Start: 05/29/21 14:23 Freq: Status: Active Protocol: Document 05/30/21 12:17 MB (Rec: 05/30/21 12:36 MB [id number]) Current Condition History of Current Condition Onset Date January 2021 Current Complaints Thoracic pain and tightness and finger numbness. 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 She thinks the grief took a toll on her body. In January, her dad almost slipped and she injured her back trying to help him. She had a trigger finger in right 5th finger and she did some OT exercises her daughter told her to do. She then had numbness in her right thumb and index finger. She tried massage therapy and was told she is a rock. She does a yoga routine twice a day and takes a muscle relaxor. Her right thumb and index finger have not stopped being numb since February. Left thumb numbness is starting at the tip of her thumb. She has pain in her thumb and finger joints. She states that the doctor told her she might have pinched something in her neck. Her doctor does not know about the left thumb numbness as it is new since visiting her doctor. This PT has not received any doctor notes through the EMR. Pt reports 4-5/10 pain across her chest and the front and and back of both her arms. After taking the muscle relaxor, she can sleep until about 0300 and then wakes up. She cannot sleep on her back. She sleeps on her left side and she lies her right arm across the pillow. She has one pillow under her head. She would rather not sleep with a pillow. PMH includes DM1 and has a pump and sensor, vision problems with some nystagmus, she occ uses magnifying glass and contrast, allergies to tape. Prior Treatments and Tests PT in the past for her right hip and leg Treatment Goals Patient/Caregiver Goals To decrease pain, sleep better and see if numbness in fingers gets better PT-OP-C Subjective Start: 05/29/21 14:23 Freq: Status: Active Protocol: Document 06/26/21 07:30 MB (Rec: 06/26/21 08:13 MB [id number]) OP-PT Subjective Patient Comments Patient Comments Pt states that she went to OT in [facility] for hand numbness. She will see the OT 2x/wk on opposite days of PT. She was given prayer stretch carpal tunnel exercises and pressing out. PT-OP-J Posture/Palpation/Skin Start: 05/29/21 14:23 Freq: Status: Active Protocol: Document 05/30/21 12:17 MB (Rec: 05/30/21 14:06 MB [id number]) Posture Evaluation Comments Posture Comments Standing posture: Rounded shoulders and increased soft tissue body mass, left shoulder 1 in front of left tragus, Dowager's hump, increased thoracic kyphosis and right sided convexity, increased lumbar lordosis, right iliac crest is higher than the left, left knee tends to bend and pt reports history of scoliosis. PT-OP-K Range of Motion Start: 05/29/21 14:23 Freq: Status: Active Protocol: Document 05/30/21 12:17 MB (Rec: 05/30/21 14:06 MB [id number]) Cervical Spine Range of Motion Cervical Spine Active Testing Position Standing Flexion 22 Extension 19 Rotation Left 42 Rotation Right 42 Lateral Flexion Left 16 Lateral Flexion Right 16 Comments Thoracic rotation in sitting to the right 5 deg and left 10 deg, very limited and with some discomfort Shoulder Goniometric Range of Motion Shoulder Left Active Testing Position Standing Flexion 140 Abduction 158 Right Active Testing Position Standing Flexion 140 Abduction 158 PT-OP-M Strength Start: 05/29/21 14:23 Freq: Status: Active Protocol: Document 05/30/21 12:17 MB (Rec: 05/30/21 14:09 MB [id number]) Shoulder Strength Shoulder Manual Muscle Testing Left Flexion 5 Normal Adduction 4 Good External Rotation 3+ Fair+ Internal Rotation 5 Normal Right Flexion 5 Normal Abduction (C5) 4 Good External Rotation 3+ Fair+ Internal Rotation 5 Normal Elbow/Forearm Strength Elbow and Forearm Manual Muscle Testing Left Flexion (C6) 5 Normal Extension (C7) 5 Normal Pronation 4 Good Supination 4 Good Right Flexion (C6) 5 Normal Extension (C7) 4 Good Pronation 4 Good Supination 4 Good Wrist Strength Wrist Manual Muscle Testing Left Flexion (C7) 4 Good Extension (C6) 4 Good Right Flexion (C7) 4 Good Extension (C6) 4 Good PT-OP-Q Treatments Start: 05/29/21 14:23 Freq: Status: Active Protocol: Document 06/26/21 07:30 MB (Rec: 06/26/21 08:13 MB [id number]) Cardio Equipment Upper Body Ergometer (UBE) Duration (Minutes) 14 Other 1' forward and 1' backward Therapeutic Exercises Sitting Exercises Wrist and elbow unwind Sitting Exercise Name Some cervical SB Comments Performed all exercises with wrist rotation, median and radial nerve stretc Standing Exercises Doorway stretches Standing Exercise Name Pect, hip flexor and SB Comments B, feet flush to doorway Thread the needle Comments Hands on wall Cat cow Comments Hands on sink PT-OP-T Assessment and Plan Start: 05/29/21 14:23 Freq: Status: Active Protocol: Document 06/26/21 07:30 MB (Rec: 06/26/21 08:13 MB [id number]) Physical Therapy Assessment Rehab Potential Rehabilitation Potential Fair Evaluation Complexity Number of Personal Factors/Comorbidities 1-2 Number of Body Systems Impaired 3 Clinical Presentation at Evaluation Evolving Impairments Impairments Activity Tolerance,Balance, Functional Activities, Functional Mobility,Pain, Posture,ROM,Sensation,Soft Tissue Mobility,Strength Other Impairments Personal factors include pt states she is a workaholic and she does not have a lot of self-care time. Body systems affected include musculoskeletal, neuromuscular , metabolic, vision. Her clinical presentation is evolving. Goals 5 Binder Cutter Goal (LTG) Pt will perform HEP with I including postural, breathing, relaxation, self-massage, range of motion and flexibility and strengthening exercises to improve mobility and pain by 07/30/21. LTG Duration 8 weeks 4 Binder Cutter Goal (LTG) Pt will present with improved active cervical extension and flexion to at least 30 deg and B rotation to at least 50 deg to improve pain and tasks like driving by 07/30/21. LTG Duration 8 weeks 3 Fci Goal (LTG) Pt will present with improved B thoracic rotation in sitting to at least 20 deg to improve pain and overall motion by . LTG Duration 8 weeks 2 Binder Cutter Goal (LTG) Pt will report a 50% improvement in finger numbness to improve fine motor tasks by 07/30/21. LTG Duration 8 weeks 1 Fci Goal (LTG) Pt will report an overall 75% improvement in thoracic, neck and arm pain to improve sleep and quality of life by . LTG Duration 8 weeks Assessment Summary Assessment Pt is now seeing OT 2x/wk in [facility] re: hand numbness and she was told she has some carpal tunnel stuff. She might get an EMG. She was given some exercises and is doing them. Progressed arm bike today and stretches for work to help her get out of forward posture. Physical Therapy Plan Frequency and Duration Frequency of Treatment 2x/Week Duration of Treatment 8 weeks Plan of Care Start Date 05/30/21 Plan of Care End Date 07/30/21 Therapeutic Interventions Therapeutic Interventions Balance Training,Canalithic Repositioning,Coordination Training,Home Exercise Program ,Joint Mobilizations,Manual Therapy,Neuromuscular Re- education,Patient/Caregiver Education,Self-Care/Home Management,Sensory Integration ,Soft Tissue Mobilization, Taping,Therapeutic Activities, Therapeutic Exercises Modalities Cold Pack/Ice Massage,Hot Packs Other Referrals/Consults Referrals/Consults Recommended EMG for right greater than left hand paresthesias Next Visit Focus/Plan Next Note Type Treatment Note Next Visit Plan Consider progressing Buteyko breathing, therapy ball exercises, consider strengthening over pool noodle , progress open books
--- NOTE | 2021-07-08 10:45 | PT.OTN ---
Current Diagnoses Strain of muscle and tendon of unspecified wall of thorax, initial encounter (07/08/21) Physical Therapy Treatment Note PT-OP-A Visit Information Start: 05/29/21 14:23 Freq: Status: Active Protocol: Document 07/08/21 08:16 MB (Rec: 07/08/21 08:58 MB [id number]) Out-Patient Physical Therapy Visit Information Visit Information Visit Type Treatment Note Visit Note Premera, no pre-auth, 45 visits per year Visit Start Time 08:16 Visit Stop Time 09:00 Total Visit Minutes 44 Visit Number 9 Evaluation Information Evaluation Date 05/30/21 Precautions Precautions Pt with tingling in hands (had this on initial eval and doctor is aware, contine to monitor) PT-OP-B Current Condition Start: 05/29/21 14:23 Freq: Status: Active Protocol: Document 05/30/21 12:17 MB (Rec: 05/30/21 12:36 MB [id number]) Current Condition History of Current Condition Onset Date January 2021 Current Complaints Thoracic pain and tightness and finger numbness. 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 She thinks the grief took a toll on her body. In January, her dad almost slipped and she injured her back trying to help him. She had a trigger finger in right 5th finger and she did some OT exercises her daughter told her to do. She then had numbness in her right thumb and index finger. She tried massage therapy and was told she is a rock. She does a yoga routine twice a day and takes a muscle relaxor. Her right thumb and index finger have not stopped being numb since February. Left thumb numbness is starting at the tip of her thumb. She has pain in her thumb and finger joints. She states that the doctor told her she might have pinched something in her neck. Her doctor does not know about the left thumb numbness as it is new since visiting her doctor. This PT has not received any doctor notes through the EMR. Pt reports 4-5/10 pain across her chest and the front and and back of both her arms. After taking the muscle relaxor, she can sleep until about 0300 and then wakes up. She cannot sleep on her back. She sleeps on her left side and she lies her right arm across the pillow. She has one pillow under her head. She would rather not sleep with a pillow. PMH includes DM1 and has a pump and sensor, vision problems with some nystagmus, she occ uses magnifying glass and contrast, allergies to tape. Prior Treatments and Tests PT in the past for her right hip and leg Treatment Goals Patient/Caregiver Goals To decrease pain, sleep better and see if numbness in fingers gets better PT-OP-C Subjective Start: 05/29/21 14:23 Freq: Status: Active Protocol: Document 07/08/21 08:16 MB (Rec: 07/08/21 10:45 MB [id number]) OP-PT Subjective Patient Comments Patient Comments Pt reports she has had an onset of a new kind of neck tension and headache over the past few days. PT-OP-J Posture/Palpation/Skin Start: 05/29/21 14:23 Freq: Status: Active Protocol: Document 05/30/21 12:17 MB (Rec: 05/30/21 14:06 MB [id number]) Posture Evaluation Comments Posture Comments Standing posture: Rounded shoulders and increased soft tissue body mass, left shoulder 1 in front of left tragus, Dowager's hump, increased thoracic kyphosis and right sided convexity, increased lumbar lordosis, right iliac crest is higher than the left, left knee tends to bend and pt reports history of scoliosis. PT-OP-K Range of Motion Start: 05/29/21 14:23 Freq: Status: Active Protocol: Document 05/30/21 12:17 MB (Rec: 05/30/21 14:06 MB [id number]) Cervical Spine Range of Motion Cervical Spine Active Testing Position Standing Flexion 22 Extension 19 Rotation Left 42 Rotation Right 42 Lateral Flexion Left 16 Lateral Flexion Right 16 Comments Thoracic rotation in sitting to the right 5 deg and left 10 deg, very limited and with some discomfort Shoulder Goniometric Range of Motion Shoulder Left Active Testing Position Standing Flexion 140 Abduction 158 Right Active Testing Position Standing Flexion 140 Abduction 158 PT-OP-M Strength Start: 05/29/21 14:23 Freq: Status: Active Protocol: Document 05/30/21 12:17 MB (Rec: 05/30/21 14:09 MB [id number]) Shoulder Strength Shoulder Manual Muscle Testing Left Flexion 5 Normal Adduction 4 Good External Rotation 3+ Fair+ Internal Rotation 5 Normal Right Flexion 5 Normal Abduction (C5) 4 Good External Rotation 3+ Fair+ Internal Rotation 5 Normal Elbow/Forearm Strength Elbow and Forearm Manual Muscle Testing Left Flexion (C6) 5 Normal Extension (C7) 5 Normal Pronation 4 Good Supination 4 Good Right Flexion (C6) 5 Normal Extension (C7) 4 Good Pronation 4 Good Supination 4 Good Wrist Strength Wrist Manual Muscle Testing Left Flexion (C7) 4 Good Extension (C6) 4 Good Right Flexion (C7) 4 Good Extension (C6) 4 Good PT-OP-Q Treatments Start: 05/29/21 14:23 Freq: Status: Active Protocol: Document 07/08/21 08:16 MB (Rec: 07/08/21 08:58 MB [id number]) Manual Therapy Treatment Other Other Manual Treatments Pt agrees to Counterstrain to assess and treat fascial tension and she presents with tension in spinal medullary vein and PT treats stacks in this system as well as dura and pt responds well to PT. PT-OP-T Assessment and Plan Start: 05/29/21 14:23 Freq: Status: Active Protocol: Document 07/08/21 08:16 MB (Rec: 07/08/21 08:58 MB [id number]) Physical Therapy Assessment Rehab Potential Rehabilitation Potential Fair Evaluation Complexity Number of Personal Factors/Comorbidities 1-2 Number of Body Systems Impaired 3 Clinical Presentation at Evaluation Evolving Impairments Impairments Activity Tolerance,Balance, Functional Activities, Functional Mobility,Pain, Posture,ROM,Sensation,Soft Tissue Mobility,Strength Other Impairments Personal factors include pt states she is a workaholic and she does not have a lot of self-care time. Body systems affected include musculoskeletal, neuromuscular , metabolic, vision. Her clinical presentation is evolving. Goals 5 Fpc Goal (LTG) Pt will perform HEP with I including postural, breathing, relaxation, self-massage, range of motion and flexibility and strengthening exercises to improve mobility and pain by 07/30/21. LTG Duration 8 weeks 4 Halver Machine Operator Goal (LTG) Pt will present with improved active cervical extension and flexion to at least 30 deg and B rotation to at least 50 deg to improve pain and tasks like driving by 07/30/21. LTG Duration 8 weeks 3 Fpc Goal (LTG) Pt will present with improved B thoracic rotation in sitting to at least 20 deg to improve pain and overall motion by . LTG Duration 8 weeks 2 Fpc Goal (LTG) Pt will report a 50% improvement in finger numbness to improve fine motor tasks by 07/30/21. LTG Duration 8 weeks 1 Fpc Goal (LTG) Pt will report an overall 75% improvement in thoracic, neck and arm pain to improve sleep and quality of life by . LTG Duration 8 weeks Assessment Summary Assessment Counterstrain today and pt tolerates well initially. Con' t to progress exercises as needed. She will benefit from further Counterstrain in future treatment dates given cranial tension per palpation. Physical Therapy Plan Frequency and Duration Frequency of Treatment 2x/Week Duration of Treatment 8 weeks Plan of Care Start Date 05/30/21 Plan of Care End Date 07/30/21 Therapeutic Interventions Therapeutic Interventions Balance Training,Canalithic Repositioning,Coordination Training,Home Exercise Program ,Joint Mobilizations,Manual Therapy,Neuromuscular Re- education,Patient/Caregiver Education,Self-Care/Home Management,Sensory Integration ,Soft Tissue Mobilization, Taping,Therapeutic Activities, Therapeutic Exercises Modalities Cold Pack/Ice Massage,Hot Packs Other Referrals/Consults Referrals/Consults Recommended EMG for right greater than left hand paresthesias Next Visit Focus/Plan Next Note Type Progress Note Next Visit Plan Counterstrain for cranial points and clearing before it. Consider progressing Buteyko breathing, therapy ball exercises, consider strengthening over pool noodle , progress open books
--- NOTE | 2021-07-11 09:09 | PT.OTN ---
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 Original Note: Current Diagnoses Strain of muscle and tendon of unspecified wall of thorax, initial encounter (07/11/21) Physical Therapy Treatment Note PT-OP-A Visit Information Start: 05/29/21 14:23 Freq: Status: Active Protocol: Document 07/11/21 08:14 MB (Rec: 07/11/21 09:09 MB [id number]) Out-Patient Physical Therapy Visit Information Visit Information Visit Type Progress Note Visit Note Premera, no pre-auth, 45 visits per year Visit Start Time 08:14 Visit Stop Time 08:59 Total Visit Minutes 45 Visit Number 10 Evaluation Information Evaluation Date 05/30/21 Precautions Precautions Pt with tingling in hands (had this on initial eval and doctor is aware, contine to monitor) PT-OP-B Current Condition Start: 05/29/21 14:23 Freq: Status: Active Protocol: Document 05/30/21 12:17 MB (Rec: 05/30/21 12:36 MB [id number]) Current Condition History of Current Condition Onset Date January 2021 Current Complaints Thoracic pain and tightness and finger numbness. 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 She thinks the grief took a toll on her body. In January, her dad almost slipped and she injured her back trying to help him. She had a trigger finger in right 5th finger and she did some OT exercises her daughter told her to do. She then had numbness in her right thumb and index finger. She tried massage therapy and was told she is a rock. She does a yoga routine twice a day and takes a muscle relaxor. Her right thumb and index finger have not stopped being numb since February. Left thumb numbness is starting at the tip of her thumb. She has pain in her thumb and finger joints. She states that the doctor told her she might have pinched something in her neck. Her doctor does not know about the left thumb numbness as it is new since visiting her doctor. This PT has not received any doctor notes through the EMR. Pt reports 4-5/10 pain across her chest and the front and and back of both her arms. After taking the muscle relaxor, she can sleep until about 0300 and then wakes up. She cannot sleep on her back. She sleeps on her left side and she lies her right arm across the pillow. She has one pillow under her head. She would rather not sleep with a pillow. PMH includes DM1 and has a pump and sensor, vision problems with some nystagmus, she occ uses magnifying glass and contrast, allergies to tape. Prior Treatments and Tests PT in the past for her right hip and leg Treatment Goals Patient/Caregiver Goals To decrease pain, sleep better and see if numbness in fingers gets better PT-OP-C Subjective Start: 05/29/21 14:23 Freq: Status: Active Protocol: Document 07/11/21 08:14 MB (Rec: 07/11/21 09:09 MB [id number]) OP-PT Subjective Patient Comments Patient Comments Pt has continued with OT treatments and realized that her forearms are really tight. She con't to report paresthesias in right greater than left index and thumb. OT told her that he thinks she has carpal tunnel. Since starting PT, pt reports that she has improvements in pain and sleeping. She is getting up every half hour to do exercises at work. PT-OP-J Posture/Palpation/Skin Start: 05/29/21 14:23 Freq: Status: Active Protocol: Document 05/30/21 12:17 MB (Rec: 05/30/21 14:06 MB [id number]) Posture Evaluation Comments Posture Comments Standing posture: Rounded shoulders and increased soft tissue body mass, left shoulder 1 in front of left tragus, Dowager's hump, increased thoracic kyphosis and right sided convexity, increased lumbar lordosis, right iliac crest is higher than the left, left knee tends to bend and pt reports history of scoliosis. PT-OP-K Range of Motion Start: 05/29/21 14:23 Freq: Status: Active Protocol: Document 05/30/21 12:17 MB (Rec: 05/30/21 14:06 MB [id number]) Cervical Spine Range of Motion Cervical Spine Active Testing Position Standing Flexion 22 Extension 19 Rotation Left 42 Rotation Right 42 Lateral Flexion Left 16 Lateral Flexion Right 16 Comments Thoracic rotation in sitting to the right 5 deg and left 10 deg, very limited and with some discomfort Shoulder Goniometric Range of Motion Shoulder Left Active Testing Position Standing Flexion 140 Abduction 158 Right Active Testing Position Standing Flexion 140 Abduction 158 PT-OP-M Strength Start: 05/29/21 14:23 Freq: Status: Active Protocol: Document 05/30/21 12:17 MB (Rec: 05/30/21 14:09 MB [id number]) Shoulder Strength Shoulder Manual Muscle Testing Left Flexion 5 Normal Adduction 4 Good External Rotation 3+ Fair+ Internal Rotation 5 Normal Right Flexion 5 Normal Abduction (C5) 4 Good External Rotation 3+ Fair+ Internal Rotation 5 Normal Elbow/Forearm Strength Elbow and Forearm Manual Muscle Testing Left Flexion (C6) 5 Normal Extension (C7) 5 Normal Pronation 4 Good Supination 4 Good Right Flexion (C6) 5 Normal Extension (C7) 4 Good Pronation 4 Good Supination 4 Good Wrist Strength Wrist Manual Muscle Testing Left Flexion (C7) 4 Good Extension (C6) 4 Good Right Flexion (C7) 4 Good Extension (C6) 4 Good PT-OP-Q Treatments Start: 05/29/21 14:23 Freq: Status: Active Protocol: Document 07/11/21 08:14 MB (Rec: 07/11/21 09:09 MB [id number]) Cardio Equipment Upper Body Ergometer (UBE) Duration (Minutes) 11 Other 1' forward and 1' backward Therapeutic Exercises Supine Exercises Pool noodle exercises Comments Pt performs pect stretch today on purple pool noodle Pect stretch Comments Pt performs pect stretch today over pool noodle Buteyko breathing Comments Verbally reviewed today Prone Exercises Child's Pose Comments Verbally reviewed today Cat and cow Comments Verbally reviewed today and pt performing standing Sitting Exercises Pect stretch over ball Comments Performed today 55 cm ball Comments Performed today Cervical rotation with nods Comments Performed today and ed pt to keep thoracic spine still Thoracic rotation Comments Performed today Manual Therapy Treatment Other Other Manual Treatments Left pect minor STM and positional release PT-OP-T Assessment and Plan Start: 05/29/21 14:23 Freq: Status: Active Protocol: Document 07/11/21 08:14 MB (Rec: 07/11/21 09:09 MB [id number]) Physical Therapy Assessment Rehab Potential Rehabilitation Potential Fair Evaluation Complexity Number of Personal Factors/Comorbidities 1-2 Number of Body Systems Impaired 3 Clinical Presentation at Evaluation Evolving Impairments Impairments Activity Tolerance,Balance, Functional Activities, Functional Mobility,Pain, Posture,ROM,Sensation,Soft Tissue Mobility,Strength Other Impairments Personal factors include pt states she is a workaholic and she does not have a lot of self-care time. Body systems affected include musculoskeletal, neuromuscular , metabolic, vision. Her clinical presentation is evolving. Goals 5 Research Home Economist Goal (LTG) Pt will perform HEP with I including postural, breathing, relaxation, self-massage, range of motion and flexibility and strengthening exercises to improve mobility and pain by 09/10/21. 07/11/21: Pt is doing pool noodle exercises, Buteyko breathing, kids ball massage against her back, cat stretch standing, child's pose. She is also performing OT exercises as well. LTG Duration 8 weeks 4 Research Home Economist Goal (LTG) Pt will present with improved active cervical extension and flexion to at least 30 deg and B rotation to at least 60 deg to improve pain and tasks like driving by 09/10/21. 07/11/21: Cervical extension to 26 deg, flexion 29 deg, B rotation 55 deg LTG Duration 8 weeks 3 Research Home Economist Goal (LTG) Pt will present with improved B thoracic rotation in sitting to at least 20 deg to improve pain and overall motion by 09/10/21. 07/11/21: Improvement in B rotation with slightly more limitation to the left LTG Duration 8 weeks 2 Care Home Goal (LTG) Pt will report a 50% improvement in finger numbness to improve fine motor tasks by 09/10/21. 07/11/21: Pt has had no improvement in right index and thumb numbness but has had at least if not more than 50% improvement in left thumb and index numbness. LTG Duration 8 weeks 1 Care Home Goal (LTG) Pt will report an overall 75% improvement in thoracic, neck and arm pain to improve sleep and quality of life by 09/10/21. 07/11/21: Pt reports that the tightness across her back is at least 60% improved, she does have tension across the neck that is also improved. LTG Duration 8 weeks Assessment Summary Assessment Pt has progressed towards all PT goals since starting PT. These include cervical and thoracic ROM, pain, left hand paresthesias and HEP. Her right finger paresthesias are not improved. PT recommends EMG for right greater than left finger paresthesias and pt can have EMG done at [facility] if the order is sent here, if pt and physician desire. Pt will con't to benefit from PT to improve flexibility, pain and progress postural and shoulder strength. She is concurrently getting OT at another clinic and she does have a lot of exercises that she occ gets confused about and many exercises from two providers is a barrier to PT. Asked PT to bring in her handouts next PT session for review and to see if there are duplicate exercises or ones that are provocative. Physical Therapy Plan Frequency and Duration Frequency of Treatment 2x/Week Duration of Treatment 8 weeks Plan of Care Start Date 07/11/21 Plan of Care End Date 09/10/21 Therapeutic Interventions Therapeutic Interventions Balance Training,Canalithic Repositioning,Coordination Training,Home Exercise Program ,Joint Mobilizations,Manual Therapy,Neuromuscular Re- education,Patient/Caregiver Education,Self-Care/Home Management,Sensory Integration ,Soft Tissue Mobilization, Taping,Therapeutic Activities, Therapeutic Exercises Modalities Cold Pack/Ice Massage,Hot Packs Other Referrals/Consults Referrals/Consults Recommended EMG for right greater than left hand paresthesias Next Visit Focus/Plan Next Note Type Treatment Note Next Visit Plan Counterstrain for cranial points and clearing before it. Consider progressing Buteyko breathing, therapy ball exercises, consider strengthening over pool noodle , progress open books, progress intrascapular/reverse fly strengthening
--- NOTE | 2021-07-19 08:13 | PT.OTN ---
Current Diagnoses Strain of muscle and tendon of unspecified wall of thorax, initial encounter (07/19/21) Physical Therapy Treatment Note PT-OP-A Visit Information Start: 05/29/21 14:23 Freq: Status: Active Protocol: Document 07/19/21 07:30 MB (Rec: 07/19/21 08:13 MB [id number]) Out-Patient Physical Therapy Visit Information Visit Information Visit Type Treatment Note Visit Note Premera, no pre-auth, 45 visits per year Visit Start Time 07:30 Visit Stop Time 08:10 Total Visit Minutes 40 Visit Number 11 Evaluation Information Evaluation Date 05/30/21 Precautions Precautions Numbness in left fingers is almost gone. Numbness in right fingers is about the same PT-OP-B Current Condition Start: 05/29/21 14:23 Freq: Status: Active Protocol: Document 05/30/21 12:17 MB (Rec: 05/30/21 12:36 MB [id number]) Current Condition History of Current Condition Onset Date January 2021 Current Complaints Thoracic pain and tightness and finger numbness. 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 She thinks the grief took a toll on her body. In January, her dad almost slipped and she injured her back trying to help him. She had a trigger finger in right 5th finger and she did some OT exercises her daughter told her to do. She then had numbness in her right thumb and index finger. She tried massage therapy and was told she is a rock. She does a yoga routine twice a day and takes a muscle relaxor. Her right thumb and index finger have not stopped being numb since February. Left thumb numbness is starting at the tip of her thumb. She has pain in her thumb and finger joints. She states that the doctor told her she might have pinched something in her neck. Her doctor does not know about the left thumb numbness as it is new since visiting her doctor. This PT has not received any doctor notes through the EMR. Pt reports 4-5/10 pain across her chest and the front and and back of both her arms. After taking the muscle relaxor, she can sleep until about 0300 and then wakes up. She cannot sleep on her back. She sleeps on her left side and she lies her right arm across the pillow. She has one pillow under her head. She would rather not sleep with a pillow. PMH includes DM1 and has a pump and sensor, vision problems with some nystagmus, she occ uses magnifying glass and contrast, allergies to tape. Prior Treatments and Tests PT in the past for her right hip and leg Treatment Goals Patient/Caregiver Goals To decrease pain, sleep better and see if numbness in fingers gets better PT-OP-C Subjective Start: 05/29/21 14:23 Freq: Status: Active Protocol: Document 07/19/21 07:30 MB (Rec: 07/19/21 08:13 MB [id number]) OP-PT Subjective Patient Comments Patient Comments Pt reports that the numbness in her left fingers is about gone. The numbness in her right fingers is about the same. She called her doctor about the EMG but hasn't heard back yet. PT-OP-J Posture/Palpation/Skin Start: 05/29/21 14:23 Freq: Status: Active Protocol: Document 05/30/21 12:17 MB (Rec: 05/30/21 14:06 MB [id number]) Posture Evaluation Comments Posture Comments Standing posture: Rounded shoulders and increased soft tissue body mass, left shoulder 1 in front of left tragus, Dowager's hump, increased thoracic kyphosis and right sided convexity, increased lumbar lordosis, right iliac crest is higher than the left, left knee tends to bend and pt reports history of scoliosis. PT-OP-K Range of Motion Start: 05/29/21 14:23 Freq: Status: Active Protocol: Document 05/30/21 12:17 MB (Rec: 05/30/21 14:06 MB [id number]) Cervical Spine Range of Motion Cervical Spine Active Testing Position Standing Flexion 22 Extension 19 Rotation Left 42 Rotation Right 42 Lateral Flexion Left 16 Lateral Flexion Right 16 Comments Thoracic rotation in sitting to the right 5 deg and left 10 deg, very limited and with some discomfort Shoulder Goniometric Range of Motion Shoulder Left Active Testing Position Standing Flexion 140 Abduction 158 Right Active Testing Position Standing Flexion 140 Abduction 158 PT-OP-M Strength Start: 05/29/21 14:23 Freq: Status: Active Protocol: Document 05/30/21 12:17 MB (Rec: 05/30/21 14:09 MB [id number]) Shoulder Strength Shoulder Manual Muscle Testing Left Flexion 5 Normal Adduction 4 Good External Rotation 3+ Fair+ Internal Rotation 5 Normal Right Flexion 5 Normal Abduction (C5) 4 Good External Rotation 3+ Fair+ Internal Rotation 5 Normal Elbow/Forearm Strength Elbow and Forearm Manual Muscle Testing Left Flexion (C6) 5 Normal Extension (C7) 5 Normal Pronation 4 Good Supination 4 Good Right Flexion (C6) 5 Normal Extension (C7) 4 Good Pronation 4 Good Supination 4 Good Wrist Strength Wrist Manual Muscle Testing Left Flexion (C7) 4 Good Extension (C6) 4 Good Right Flexion (C7) 4 Good Extension (C6) 4 Good PT-OP-Q Treatments Start: 05/29/21 14:23 Freq: Status: Active Protocol: Document 07/19/21 07:30 MB (Rec: 07/19/21 08:13 MB [id number]) Cardio Equipment Upper Body Ergometer (UBE) Duration (Minutes) 10 Other 1' forward and 1' backward Therapeutic Exercises Supine Exercises Strengthening over pool noodle Side bilateral Resistance Purple pool noodle, level 1 band Comments 10 reps slowly with cues for form Pool noodle exercises Supine Exercise Name Flexion, Ts, 1/2 xs, pect stretch Side bilateral Equipment Used Purple pool noodle Manual Therapy Treatment Other Other Manual Treatments Gentle STM B pects, left forearm PT-OP-T Assessment and Plan Start: 05/29/21 14:23 Freq: Status: Active Protocol: Document 07/19/21 07:30 MB (Rec: 07/19/21 08:13 MB [id number]) Physical Therapy Assessment Rehab Potential Rehabilitation Potential Fair Evaluation Complexity Number of Personal Factors/Comorbidities 1-2 Number of Body Systems Impaired 3 Clinical Presentation at Evaluation Evolving Impairments Impairments Activity Tolerance,Balance, Functional Activities, Functional Mobility,Pain, Posture,ROM,Sensation,Soft Tissue Mobility,Strength Other Impairments Personal factors include pt states she is a workaholic and she does not have a lot of self-care time. Body systems affected include musculoskeletal, neuromuscular , metabolic, vision. Her clinical presentation is evolving. Goals 5 Sales Activity Manager Goal (LTG) Pt will perform HEP with I including postural, breathing, relaxation, self-massage, range of motion and flexibility and strengthening exercises to improve mobility and pain by 09/10/21. 07/11/21: Pt is doing pool noodle exercises, Buteyko breathing, kids ball massage against her back, cat stretch standing, child's pose. She is also performing OT exercises as well. LTG Duration 8 weeks 4 Sales Activity Manager Goal (LTG) Pt will present with improved active cervical extension and flexion to at least 30 deg and B rotation to at least 60 deg to improve pain and tasks like driving by 09/10/21. 07/11/21: Cervical extension to 26 deg, flexion 29 deg, B rotation 55 deg LTG Duration 8 weeks 3 Care Home Goal (LTG) Pt will present with improved B thoracic rotation in sitting to at least 20 deg to improve pain and overall motion by 09/10/21. 07/11/21: Improvement in B rotation with slightly more limitation to the left LTG Duration 8 weeks 2 Care Home Goal (LTG) Pt will report a 50% improvement in finger numbness to improve fine motor tasks by 09/10/21. 07/11/21: Pt has had no improvement in right index and thumb numbness but has had at least if not more than 50% improvement in left thumb and index numbness. LTG Duration 8 weeks 1 Care Home Goal (LTG) Pt will report an overall 75% improvement in thoracic, neck and arm pain to improve sleep and quality of life by 09/10/21. 07/11/21: Pt reports that the tightness across her back is at least 60% improved, she does have tension across the neck that is also improved. LTG Duration 8 weeks Assessment Summary Assessment Progressed flexibility and started strengthening over pool noodle today. Con't manual work. Physical Therapy Plan Frequency and Duration Frequency of Treatment 2x/Week Duration of Treatment 8 weeks Plan of Care Start Date 07/11/21 Plan of Care End Date 09/10/21 Therapeutic Interventions Therapeutic Interventions Balance Training,Canalithic Repositioning,Coordination Training,Home Exercise Program ,Joint Mobilizations,Manual Therapy,Neuromuscular Re- education,Patient/Caregiver Education,Self-Care/Home Management,Sensory Integration ,Soft Tissue Mobilization, Taping,Therapeutic Activities, Therapeutic Exercises Modalities Cold Pack/Ice Massage,Hot Packs Other Referrals/Consults Referrals/Consults Recommended EMG for right greater than left hand paresthesias Next Visit Focus/Plan Next Note Type Treatment Note Next Visit Plan Ongoing manual work, therapy ball exercises, further strengthening over pool noodle , progress open book, progress intrascapular/reverse fly strengthening
--- NOTE | 2021-07-23 08:11 | PT.OTN ---
Current Diagnoses Strain of muscle and tendon of unspecified wall of thorax, initial encounter (07/23/21) Physical Therapy Treatment Note PT-OP-A Visit Information Start: 05/29/21 14:23 Freq: Status: Active Protocol: Document 07/23/21 07:30 MB (Rec: 07/23/21 08:08 MB [id number]) Out-Patient Physical Therapy Visit Information Visit Information Visit Type Treatment Note Visit Note Premera, no pre-auth, 45 visits per year Visit Start Time 07:30 Visit Stop Time 08:11 Total Visit Minutes 41 Visit Number 12 Evaluation Information Evaluation Date 05/30/21 Precautions Precautions Numbness in left fingers is almost gone. Numbness in right fingers is about the same PT-OP-B Current Condition Start: 05/29/21 14:23 Freq: Status: Active Protocol: Document 05/30/21 12:17 MB (Rec: 05/30/21 12:36 MB [id number]) Current Condition History of Current Condition Onset Date January 2021 Current Complaints Thoracic pain and tightness and finger numbness. 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 She thinks the grief took a toll on her body. In January, her dad almost slipped and she injured her back trying to help him. She had a trigger finger in right 5th finger and she did some OT exercises her daughter told her to do. She then had numbness in her right thumb and index finger. She tried massage therapy and was told she is a rock. She does a yoga routine twice a day and takes a muscle relaxor. Her right thumb and index finger have not stopped being numb since February. Left thumb numbness is starting at the tip of her thumb. She has pain in her thumb and finger joints. She states that the doctor told her she might have pinched something in her neck. Her doctor does not know about the left thumb numbness as it is new since visiting her doctor. This PT has not received any doctor notes through the EMR. Pt reports 4-5/10 pain across her chest and the front and and back of both her arms. After taking the muscle relaxor, she can sleep until about 0300 and then wakes up. She cannot sleep on her back. She sleeps on her left side and she lies her right arm across the pillow. She has one pillow under her head. She would rather not sleep with a pillow. PMH includes DM1 and has a pump and sensor, vision problems with some nystagmus, she occ uses magnifying glass and contrast, allergies to tape. Prior Treatments and Tests PT in the past for her right hip and leg Treatment Goals Patient/Caregiver Goals To decrease pain, sleep better and see if numbness in fingers gets better PT-OP-C Subjective Start: 05/29/21 14:23 Freq: Status: Active Protocol: Document 07/23/21 07:30 MB (Rec: 07/23/21 08:08 MB [id number]) OP-PT Subjective Patient Comments Patient Comments Pt states that her left hand isn't perfect but it is so much better. The OT told her that she can take out any OT exercises that she wants to and then can rotate her exercises. She hasn't heard back about the EMG. PT-OP-J Posture/Palpation/Skin Start: 05/29/21 14:23 Freq: Status: Active Protocol: Document 05/30/21 12:17 MB (Rec: 05/30/21 14:06 MB [id number]) Posture Evaluation Comments Posture Comments Standing posture: Rounded shoulders and increased soft tissue body mass, left shoulder 1 in front of left tragus, Dowager's hump, increased thoracic kyphosis and right sided convexity, increased lumbar lordosis, right iliac crest is higher than the left, left knee tends to bend and pt reports history of scoliosis. PT-OP-K Range of Motion Start: 05/29/21 14:23 Freq: Status: Active Protocol: Document 05/30/21 12:17 MB (Rec: 05/30/21 14:06 MB [id number]) Cervical Spine Range of Motion Cervical Spine Active Testing Position Standing Flexion 22 Extension 19 Rotation Left 42 Rotation Right 42 Lateral Flexion Left 16 Lateral Flexion Right 16 Comments Thoracic rotation in sitting to the right 5 deg and left 10 deg, very limited and with some discomfort Shoulder Goniometric Range of Motion Shoulder Left Active Testing Position Standing Flexion 140 Abduction 158 Right Active Testing Position Standing Flexion 140 Abduction 158 PT-OP-M Strength Start: 05/29/21 14:23 Freq: Status: Active Protocol: Document 05/30/21 12:17 MB (Rec: 05/30/21 14:09 MB [id number]) Shoulder Strength Shoulder Manual Muscle Testing Left Flexion 5 Normal Adduction 4 Good External Rotation 3+ Fair+ Internal Rotation 5 Normal Right Flexion 5 Normal Abduction (C5) 4 Good External Rotation 3+ Fair+ Internal Rotation 5 Normal Elbow/Forearm Strength Elbow and Forearm Manual Muscle Testing Left Flexion (C6) 5 Normal Extension (C7) 5 Normal Pronation 4 Good Supination 4 Good Right Flexion (C6) 5 Normal Extension (C7) 4 Good Pronation 4 Good Supination 4 Good Wrist Strength Wrist Manual Muscle Testing Left Flexion (C7) 4 Good Extension (C6) 4 Good Right Flexion (C7) 4 Good Extension (C6) 4 Good PT-OP-Q Treatments Start: 05/29/21 14:23 Freq: Status: Active Protocol: Document 07/23/21 07:30 MB (Rec: 07/23/21 08:08 MB [id number]) Cardio Equipment Upper Body Ergometer (UBE) Duration (Minutes) 10 Other 1' forward and 1' backwards Therapeutic Exercises Supine Exercises Strengthening over pool noodle Supine Exercise Name Shoulder horizontal abduction, ER, PNF Side bilateral Resistance Purple pool noodle, level 1, then 2 bands Comments 10 reps slowly with cues for form Pool noodle exercises Supine Exercise Name Flexion, Ts, 1/2 xs, pect stretch Side bilateral Equipment Used Purple pool noodle Comments 10 reps AROM and 1 rep stretch Pect stretch Comments Performs over pool noodle today Sitting Exercises Pect stretch over ball Equipment Used 55 cm ball Comments Performed today, thoracic extension, bridge posture hips and core PT-OP-T Assessment and Plan Start: 05/29/21 14:23 Freq: Status: Active Protocol: Document 07/23/21 07:30 MB (Rec: 07/23/21 08:08 MB [id number]) Physical Therapy Assessment Rehab Potential Rehabilitation Potential Fair Evaluation Complexity Number of Personal Factors/Comorbidities 1-2 Number of Body Systems Impaired 3 Clinical Presentation at Evaluation Evolving Impairments Impairments Activity Tolerance,Balance, Functional Activities, Functional Mobility,Pain, Posture,ROM,Sensation,Soft Tissue Mobility,Strength Other Impairments Personal factors include pt states she is a workaholic and she does not have a lot of self-care time. Body systems affected include musculoskeletal, neuromuscular , metabolic, vision. Her clinical presentation is evolving. Goals 5 Care Home Goal (LTG) Pt will perform HEP with I including postural, breathing, relaxation, self-massage, range of motion and flexibility and strengthening exercises to improve mobility and pain by 09/10/21. 07/11/21: Pt is doing pool noodle exercises, Buteyko breathing, kids ball massage against her back, cat stretch standing, child's pose. She is also performing OT exercises as well. LTG Duration 8 weeks 4 [employer] Goal (LTG) Pt will present with improved active cervical extension and flexion to at least 30 deg and B rotation to at least 60 deg to improve pain and tasks like driving by 09/10/21. 07/11/21: Cervical extension to 26 deg, flexion 29 deg, B rotation 55 deg LTG Duration 8 weeks 3 Care Home Goal (LTG) Pt will present with improved B thoracic rotation in sitting to at least 20 deg to improve pain and overall motion by 09/10/21. 07/11/21: Improvement in B rotation with slightly more limitation to the left LTG Duration 8 weeks 2 Care Home Goal (LTG) Pt will report a 50% improvement in finger numbness to improve fine motor tasks by 09/10/21. 07/11/21: Pt has had no improvement in right index and thumb numbness but has had at least if not more than 50% improvement in left thumb and index numbness. LTG Duration 8 weeks 1 [employer] Goal (LTG) Pt will report an overall 75% improvement in thoracic, neck and arm pain to improve sleep and quality of life by 09/10/21. 07/11/21: Pt reports that the tightness across her back is at least 60% improved, she does have tension across the neck that is also improved. LTG Duration 8 weeks Assessment Summary Assessment Progressed ER and horizontal abduction strengthening over pool noodle today and tried therapy ball again and pt does well next to [employer] bar. Physical Therapy Plan Frequency and Duration Frequency of Treatment 2x/Week Duration of Treatment 8 weeks Plan of Care Start Date 07/11/21 Plan of Care End Date 09/10/21 Therapeutic Interventions Therapeutic Interventions Balance Training,Canalithic Repositioning,Coordination Training,Home Exercise Program ,Joint Mobilizations,Manual Therapy,Neuromuscular Re- education,Patient/Caregiver Education,Self-Care/Home Management,Sensory Integration ,Soft Tissue Mobilization, Taping,Therapeutic Activities, Therapeutic Exercises Modalities Cold Pack/Ice Massage,Hot Packs Other Referrals/Consults Referrals/Consults Recommended EMG for right greater than left hand paresthesias Next Visit Focus/Plan Next Note Type Treatment Note Next Visit Plan Ongoing manual work, therapy ball exercises, further strengthening over pool noodle , progress open book, progress intrascapular/reverse fly strengthening
--- NOTE | 2021-07-25 08:18 | PT.OTN ---
Current Diagnoses Strain of muscle and tendon of unspecified wall of thorax, initial encounter (07/25/21) Physical Therapy Treatment Note PT-OP-A Visit Information Start: 05/29/21 14:23 Freq: Status: Active Protocol: Document 07/25/21 07:30 MB (Rec: 07/25/21 08:15 MB [id number]) Out-Patient Physical Therapy Visit Information Visit Information Visit Type Treatment Note Visit Note Premera, no pre-auth, 45 visits per year Visit Start Time 07:30 Visit Stop Time 08:12 Total Visit Minutes 42 Visit Number 13 Evaluation Information Evaluation Date 05/30/21 Precautions Precautions Numbness in left fingers is almost gone. Numbness in right fingers is about the same PT-OP-B Current Condition Start: 05/29/21 14:23 Freq: Status: Active Protocol: Document 05/30/21 12:17 MB (Rec: 05/30/21 12:36 MB [id number]) Current Condition History of Current Condition Onset Date January 2021 Current Complaints Thoracic pain and tightness and finger numbness. 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 She thinks the grief took a toll on her body. In January, her dad almost slipped and she injured her back trying to help him. She had a trigger finger in right 5th finger and she did some OT exercises her daughter told her to do. She then had numbness in her right thumb and index finger. She tried massage therapy and was told she is a rock. She does a yoga routine twice a day and takes a muscle relaxor. Her right thumb and index finger have not stopped being numb since February. Left thumb numbness is starting at the tip of her thumb. She has pain in her thumb and finger joints. She states that the doctor told her she might have pinched something in her neck. Her doctor does not know about the left thumb numbness as it is new since visiting her doctor. This PT has not received any doctor notes through the EMR. Pt reports 4-5/10 pain across her chest and the front and and back of both her arms. After taking the muscle relaxor, she can sleep until about 0300 and then wakes up. She cannot sleep on her back. She sleeps on her left side and she lies her right arm across the pillow. She has one pillow under her head. She would rather not sleep with a pillow. PMH includes DM1 and has a pump and sensor, vision problems with some nystagmus, she occ uses magnifying glass and contrast, allergies to tape. Prior Treatments and Tests PT in the past for her right hip and leg Treatment Goals Patient/Caregiver Goals To decrease pain, sleep better and see if numbness in fingers gets better PT-OP-C Subjective Start: 05/29/21 14:23 Freq: Status: Active Protocol: Document 07/25/21 07:30 MB (Rec: 07/25/21 08:15 MB [id number]) OP-PT Subjective Patient Comments Patient Comments Pt has a headache this morning . She was really worried about the drive to PT. She didn't sleep well and hasn't left the house since her last PT treatment. PT-OP-J Posture/Palpation/Skin Start: 05/29/21 14:23 Freq: Status: Active Protocol: Document 05/30/21 12:17 MB (Rec: 05/30/21 14:06 MB [id number]) Posture Evaluation Comments Posture Comments Standing posture: Rounded shoulders and increased soft tissue body mass, left shoulder 1 in front of left tragus, Dowager's hump, increased thoracic kyphosis and right sided convexity, increased lumbar lordosis, right iliac crest is higher than the left, left knee tends to bend and pt reports history of scoliosis. PT-OP-K Range of Motion Start: 05/29/21 14:23 Freq: Status: Active Protocol: Document 05/30/21 12:17 MB (Rec: 05/30/21 14:06 MB [id number]) Cervical Spine Range of Motion Cervical Spine Active Testing Position Standing Flexion 22 Extension 19 Rotation Left 42 Rotation Right 42 Lateral Flexion Left 16 Lateral Flexion Right 16 Comments Thoracic rotation in sitting to the right 5 deg and left 10 deg, very limited and with some discomfort Shoulder Goniometric Range of Motion Shoulder Left Active Testing Position Standing Flexion 140 Abduction 158 Right Active Testing Position Standing Flexion 140 Abduction 158 PT-OP-M Strength Start: 05/29/21 14:23 Freq: Status: Active Protocol: Document 05/30/21 12:17 MB (Rec: 05/30/21 14:09 MB [id number]) Shoulder Strength Shoulder Manual Muscle Testing Left Flexion 5 Normal Adduction 4 Good External Rotation 3+ Fair+ Internal Rotation 5 Normal Right Flexion 5 Normal Abduction (C5) 4 Good External Rotation 3+ Fair+ Internal Rotation 5 Normal Elbow/Forearm Strength Elbow and Forearm Manual Muscle Testing Left Flexion (C6) 5 Normal Extension (C7) 5 Normal Pronation 4 Good Supination 4 Good Right Flexion (C6) 5 Normal Extension (C7) 4 Good Pronation 4 Good Supination 4 Good Wrist Strength Wrist Manual Muscle Testing Left Flexion (C7) 4 Good Extension (C6) 4 Good Right Flexion (C7) 4 Good Extension (C6) 4 Good PT-OP-Q Treatments Start: 05/29/21 14:23 Freq: Status: Active Protocol: Document 07/25/21 07:30 MB (Rec: 07/25/21 08:15 MB [id number]) Cardio Equipment Upper Body Ergometer (UBE) Duration (Minutes) 10 Other 1' forward and 1' backwards Manual Therapy Treatment Other Other Manual Treatments Pt agrees to Counterstrain to assess and treat fascial tension and she presents with tension in the following fascial systems: spinal medullary vein, sympathetics and PT treats stacks in these systems. Gentle left greater than right first rib mobs grade II-III. PT also performs suboccipital release and prolonged gentle cervical traction PT-OP-T Assessment and Plan Start: 05/29/21 14:23 Freq: Status: Active Protocol: Document 07/25/21 07:30 MB (Rec: 07/25/21 08:15 MB [id number]) Physical Therapy Assessment Rehab Potential Rehabilitation Potential Fair Evaluation Complexity Number of Personal Factors/Comorbidities 1-2 Number of Body Systems Impaired 3 Clinical Presentation at Evaluation Evolving Impairments Impairments Activity Tolerance,Balance, Functional Activities, Functional Mobility,Pain, Posture,ROM,Sensation,Soft Tissue Mobility,Strength Other Impairments Personal factors include pt states she is a workaholic and she does not have a lot of self-care time. Body systems affected include musculoskeletal, neuromuscular , metabolic, vision. Her clinical presentation is evolving. Goals 5 [employer] Goal (LTG) Pt will perform HEP with I including postural, breathing, relaxation, self-massage, range of motion and flexibility and strengthening exercises to improve mobility and pain by 09/10/21. 07/11/21: Pt is doing pool noodle exercises, Buteyko breathing, kids ball massage against her back, cat stretch standing, child's pose. She is also performing OT exercises as well. LTG Duration 8 weeks 4 [employer] Goal (LTG) Pt will present with improved active cervical extension and flexion to at least 30 deg and B rotation to at least 60 deg to improve pain and tasks like driving by 09/10/21. 07/11/21: Cervical extension to 26 deg, flexion 29 deg, B rotation 55 deg LTG Duration 8 weeks 3 [employer] Goal (LTG) Pt will present with improved B thoracic rotation in sitting to at least 20 deg to improve pain and overall motion by 09/10/21. 07/11/21: Improvement in B rotation with slightly more limitation to the left LTG Duration 8 weeks 2 [employer]sp Goal (LTG) Pt will report a 50% improvement in finger numbness to improve fine motor tasks by 09/10/21. 07/11/21: Pt has had no improvement in right index and thumb numbness but has had at least if not more than 50% improvement in left thumb and index numbness. LTG Duration 8 weeks 1 [employer] Goal (LTG) Pt will report an overall 75% improvement in thoracic, neck and arm pain to improve sleep and quality of life by 09/10/21. 07/11/21: Pt reports that the tightness across her back is at least 60% improved, she does have tension across the neck that is also improved. LTG Duration 8 weeks Assessment Summary Assessment Counterstrain today and pt responds well. Her headache is much better after treatment. Will con't to monitor. Physical Therapy Plan Frequency and Duration Frequency of Treatment 2x/Week Duration of Treatment 8 weeks Plan of Care Start Date 07/11/21 Plan of Care End Date 09/10/21 Therapeutic Interventions Therapeutic Interventions Balance Training,Canalithic Repositioning,Coordination Training,Home Exercise Program ,Joint Mobilizations,Manual Therapy,Neuromuscular Re- education,Patient/Caregiver Education,Self-Care/Home Management,Sensory Integration ,Soft Tissue Mobilization, Taping,Therapeutic Activities, Therapeutic Exercises Modalities Cold Pack/Ice Massage,Hot Packs Other Referrals/Consults Referrals/Consults Recommended EMG for right greater than left hand paresthesias Next Visit Focus/Plan Next Note Type Treatment Note Next Visit Plan Manual work, therapy ball exercises, further strengthening over pool noodle , progress open book, progress intrascapular/reverse fly strengthening
--- NOTE | 2021-08-20 14:10 | PT-OP ANOTE ---
Pt calls in and cancels all appointments d/t being COVID positive and reschedule when she is well.
--- NOTE | 2021-09-10 15:56 | PT-OP ANOTE ---
PT speaks with pt. She is feeling better after COVID and she con't to be very tired. She will reschedule when she feels better.
--- NOTE | 2021-09-19 15:37 | PT.OPDS ---
Current Diagnoses Strain of muscle and tendon of unspecified wall of thorax, initial encounter (08/08/21) Visit Care Team Role Provider Type Carlito Ramos MD Attending Provider Non-Staff Primary Care Provider Referring Provider Specialty: Medical Address: [address] [place] [address], [id number] Email: Visit Number Visit Number 14 Discharge Summary PT-OP-B Current Condition Start: 05/29/21 14:23 Freq: Status: Active Protocol: Document 05/30/21 12:17 MB (Rec: 05/30/21 12:36 MB [id number]) Current Condition History of Current Condition Onset Date January 2021 Current Complaints Thoracic pain and tightness and finger numbness. 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 She thinks the grief took a toll on her body. In January, her dad almost slipped and she injured her back trying to help him. She had a trigger finger in right 5th finger and she did some OT exercises her daughter told her to do. She then had numbness in her right thumb and index finger. She tried massage therapy and was told she is a rock. She does a yoga routine twice a day and takes a muscle relaxor. Her right thumb and index finger have not stopped being numb since February. Left thumb numbness is starting at the tip of her thumb. She has pain in her thumb and finger joints. She states that the doctor told her she might have pinched something in her neck. Her doctor does not know about the left thumb numbness as it is new since visiting her doctor. This PT has not received any doctor notes through the EMR. Pt reports 4-5/10 pain across her chest and the front and and back of both her arms. After taking the muscle relaxor, she can sleep until about 0300 and then wakes up. She cannot sleep on her back. She sleeps on her left side and she lies her right arm across the pillow. She has one pillow under her head. She would rather not sleep with a pillow. PMH includes DM1 and has a pump and sensor, vision problems with some nystagmus, she occ uses magnifying glass and contrast, allergies to tape. Prior Treatments and Tests PT in the past for her right hip and leg Treatment Goals Patient/Caregiver Goals To decrease pain, sleep better and see if numbness in fingers gets better PT-OP-C Subjective Start: 05/29/21 14:23 Freq: Status: Active Protocol: Document 08/08/21 07:30 MB (Rec: 08/08/21 08:11 MB [id number]) OP-PT Subjective Patient Comments Patient Comments Pt states that she has an appointment with her DO in a couple of weeks. She will ask about the EMG then. PT-OP-J Posture/Palpation/Skin Start: 05/29/21 14:23 Freq: Status: Active Protocol: Document 05/30/21 12:17 MB (Rec: 05/30/21 14:06 MB [id number]) Posture Evaluation Comments Posture Comments Standing posture: Rounded shoulders and increased soft tissue body mass, left shoulder 1 in front of left tragus, Dowager's hump, increased thoracic kyphosis and right sided convexity, increased lumbar lordosis, right iliac crest is higher than the left, left knee tends to bend and pt reports history of scoliosis. PT-OP-K Range of Motion Start: 05/29/21 14:23 Freq: Status: Active Protocol: Document 05/30/21 12:17 MB (Rec: 05/30/21 14:06 MB [id number]) Cervical Spine Range of Motion Cervical Spine Active Testing Position Standing Flexion 22 Extension 19 Rotation Left 42 Rotation Right 42 Lateral Flexion Left 16 Lateral Flexion Right 16 Comments Thoracic rotation in sitting to the right 5 deg and left 10 deg, very limited and with some discomfort Shoulder Goniometric Range of Motion Shoulder Left Active Testing Position Standing Flexion 140 Abduction 158 Right Active Testing Position Standing Flexion 140 Abduction 158 PT-OP-M Strength Start: 05/29/21 14:23 Freq: Status: Active Protocol: Document 05/30/21 12:17 MB (Rec: 05/30/21 14:09 MB [id number]) Shoulder Strength Shoulder Manual Muscle Testing Left Flexion 5 Normal Adduction 4 Good External Rotation 3+ Fair+ Internal Rotation 5 Normal Right Flexion 5 Normal Abduction (C5) 4 Good External Rotation 3+ Fair+ Internal Rotation 5 Normal Elbow/Forearm Strength Elbow and Forearm Manual Muscle Testing Left Flexion (C6) 5 Normal Extension (C7) 5 Normal Pronation 4 Good Supination 4 Good Right Flexion (C6) 5 Normal Extension (C7) 4 Good Pronation 4 Good Supination 4 Good Wrist Strength Wrist Manual Muscle Testing Left Flexion (C7) 4 Good Extension (C6) 4 Good Right Flexion (C7) 4 Good Extension (C6) 4 Good PT-OP-T Assessment and Plan Start: 05/29/21 14:23 Freq: Status: Active Protocol: Document 09/19/21 15:36 MB (Rec: 09/19/21 15:37 MB [id number]) Physical Therapy Plan Discharge Physical Therapy Discharge Reasons No Longer Attending PT Discharge Comments PT was cancelled in August d /t pt having COVID. Pt did not schedule more appointments. PT called pt on 09/10/21 about making more appointments and she has not made anymore after 10 days. Will d/c PT. Pt has not been seen by PT in over a month and since being sick with COVID.
== END 2021-10-08 08:28 ==
LOC: PHYS 07:30
PROVIDERS: PCP Internal Medicine; Referring Provider Internal Medicine; Visit Provider Internal Medicine
DX: S29.019A Strain of muscle and tendon of unspecified wall of thorax, initial encounter (principal)
CPT/HCPCS: 97110; 97140; 97162; 97535